=== PATIENT | female | born 1970 | race American Indian/Alaskan Native ===

== ENCOUNTER 2016-08-10 04:09 | Emergency (ER) | payer BC, OTHER ==
[2016-08-10 04:50] VITALS: BMI 38.2
[2016-08-10 04:51] VITALS: RESP 18
--- NOTE | 2016-08-10 04:54 | ED PDOC ---
Arrival/HPI - General Time Seen by Provider: 08/10/16 04:37 Historian: Patient - History of Present Illness Narrative History of Present Illness (Text): 08/10/16 04:54 Marlene Chao is a 45 year old female, whose past medical history includes thyroidectomy, who presents to the Emergency department complaining of mid- upper abdominal pain for the past few hours.Patient did eat earlier at [employer].Patient denies any fever, chills, chest pain, shortness of breath, nausea, vomiting, diarrhea, urinary symptoms, back pain, neck pain, headache, dizziness, or any other complaints. Time/Duration: 4-6 hours Symptom Onset: Gradual Symptom Course: Unchanged Activities at Onset: Light, Eating Context: Home Past Medical History - Provider Review Nursing Documentation Reviewed: Yes - Infectious Disease Hx of Infectious Diseases: None - Tetanus Immunization Tetanus Immunization: Unknown - Past Medical History Past Medical History: No Previous - Cardiac Hx Cardiac Disorders: Yes (pt. takes Lopressor,unknown why) - Pulmonary Hx Respiratory Disorders: Yes (past week,increasing dyspnea) - Neurological Hx Neurological Disorder: No - HEENT Hx HEENT Disorder: Yes (sinusitis 1 month ago) - Renal Hx Renal Disorder: No - Endocrine/Metabolic Hx Endocrine Disorders: Yes Hx Hyperthyroidism: Yes (lg. left sided goiter) - Hematological/Oncological Hx Blood Disorders: Yes Hx Anemia: Yes (chronic anemia) - Integumentary Hx Dermatological Disorder: No - Musculoskeletal/Rheumatological Hx Musculoskeletal Disorders: No - Gastrointestinal Hx Gastrointestinal Disorders: No - Genitourinary/Gynecological Other/Comment: miscarriage and D&C in 05/04, also small fibroids - Psychiatric Hx Anxiety: Yes (pt. takes Lorazepam each HS) Hx Substance Use: No - Surgical History Other/Comment: left fallopian tube removed in 1992, D&C in 05/04 - Anesthesia Hx Anesthesia: Yes Hx Anesthesia Reactions: No Hx Malignant Hyperthermia: No - Suicidal Assessment Feels Threatened In Home Enviroment: No Family/Social History - Physician Review Nursing Documentation Reviewed: Yes Family/Social History: No Known Family HX Smoking Status: Never Smoked Hx Alcohol Use: No Hx Substance Use: No Hx Substance Use Treatment: No Allergies/Home Meds Allergies/Adverse Reactions: Allergies No Known Allergies Allergy (Verified 08/10/16 04:49) Home Medications: Home Meds Medication Instructions Recorded Confirmed LORazepam [Ativan] 1 mg PO HS 07/15/14 08/10/16 Levothyroxine Sodium [Unithroid] 200 mcg PO DAILY 08/10/16 08/10/16 Review of Systems - Physician Review All systems were reviewed & negative as marked: Yes - Review of Systems Constitutional: Normal. absent: Fevers Eyes: Normal ENT: Normal Respiratory: Normal. absent: SOB, Cough Cardiovascular: Normal. absent: Chest Pain Gastrointestinal: Abdominal Pain. absent: Diarrhea, Nausea, Vomiting Genitourinary Female: Normal. absent: Dysuria, Frequency, Hematuria, Urine Output Changes Musculoskeletal: Normal. absent: Back Pain, Neck Pain Skin: Normal. absent: Rash Neurological: Normal. absent: Headache, Dizziness Endocrine: Normal Hemo/Lymphatic: Normal Psychiatric: Normal Physical Exam Vital Signs Reviewed: Yes Vital Signs Temp Pulse Resp BP Pulse Ox 08/10/16 04:50 97.8 F 76 18 138/85 100 Temperature: Afebrile Blood Pressure: Normal Pulse: Regular Respiratory Rate: Normal Appearance: Positive for: Well-Appearing, Non-Toxic, Comfortable Pain Distress: None Mental Status: Positive for: Alert and Oriented X 3 - Systems Exam Head: Present: Atraumatic, Normocephalic Pupils: Present: PERRL Extroacular Muscles: Present: EOMI Conjunctiva: Present: Normal Mouth: Present: Moist Mucous Membranes Neck: Present: Normal Range of Motion Respiratory/Chest: Present: Clear to Auscultation, Good Air Exchange. No: Respiratory Distress, Accessory Muscle Use Cardiovascular: Present: Regular Rate and Rhythm, Normal S1, S2. No: Murmurs Abdomen: Present: Tenderness (upper abdomen), Normal Bowel Sounds. No: Distention, Peritoneal Signs Back: Present: Normal Inspection Upper Extremity: Present: Normal Inspection. No: Cyanosis, Edema Lower Extremity: Present: Normal Inspection. No: Edema Neurological: Present: GCS=15, CN II-XII Intact, Speech Normal Skin: Present: Warm, Dry, Normal Color. No: Rashes Psychiatric: Present: Alert, Oriented x 3, Normal Insight, Normal Concentration Medical Decision Making ED Course and Treatment: 08/10/16 04:54 Impression: 45 year old female complaining of mid upper abdominal pain after eating yesterday. Plan: -- Labs, lipase -- IV fluids -- Pepcid -- Toradol -- Reassess and disposition Progress Notes: - Lab Interpretations Lab Results: 08/10/16 05:40 08/10/16 06:39 Lab Results 08/10/16 06:39: Sodium 140, Potassium 4.0, Chloride 105, Carbon Dioxide 23, Anion Gap 16, BUN 14, Creatinine 0.7, Est GFR ( Amer) > 60, Est GFR (Non- Af Amer) > 60, Random Glucose 102, Calcium 8.6, Total Bilirubin 0.8, AST 293 H, ALT 122 H, Alkaline Phosphatase 66, Total Protein 7.5, Albumin 3.7, Globulin 3.8 , Albumin/Globulin Ratio 1.0 L, Lipase 47 08/10/16 05:40: WBC 8.4, RBC 4.21, Hgb 9.2 L, Hct 29.8 L, MCV 70.8 L, MCH 21.9 L , MCHC 30.9 L, RDW 18.7 H, Plt Count 527 H, MPV 9.2 I have reviewed the lab results: Yes - RAD Interpretation Radiology Orders: 08/10/16 06:52 GALLBLADDER & PANCREAS [US] Stat - Medication Orders Current Medication Orders: Discontinued Medications Famotidine (Pepcid) 20 mg IVP STAT STA Stop: 08/10/16 04:57 Last Admin: 08/10/16 05:48 Dose: 20 MG IVP Administration Document 08/10/16 05:48 SB (Rec: 08/10/16 05:48 [id number] Charges for Administration # of IVP Administrations 1 Sodium Chloride (Sodium Chloride 0.9%) 1,000 mls @ 999 mls/hr IV .Q1H1M STA Stop: 08/10/16 05:56 Last Admin: 08/10/16 05:48 Dose: 999 MLS/HR eMAR Start Stop Document 08/10/16 05:48 SB (Rec: 08/10/16 05:48 [id number] Intravenous Solution Start Date 08/10/16 Start Time 05:48 End Date 08/10/16 Ketorolac Tromethamine (Toradol) 30 mg IVP ONCE ONE Stop: 08/10/16 04:57 Last Admin: 08/10/16 05:48 Dose: 30 MG IVP Administration Document 08/10/16 05:48 SB (Rec: 08/10/16 05:48 [id number] Charges for Administration # of IVP Administrations 1 - Transfer of Care Patient signed out to Dr:: Deidre Pending Labs:: labs/ GB sono/reeval./final disposition - Scribe Statement The provider has reviewed the documentation as recorded by the Manojibtriny Lorenzo Provider Attestation: All medical record entries made by the Scribe were at my direction and personally dictated by me. I have reviewed the chart and agree that the record accurately reflects my personal performance of the history, physical exam, medical decision making, and the department course for this patient. I have also personally directed, reviewed, and agree with the discharge instructions and disposition. Disposition/Present on Arrival - Present on Arrival Any Indicators Present on Arrival: No History of DVT/PE: No History of Uncontrolled Diabetes: No Urinary Catheter: No History Surgical Site Infection Followin - Disposition Have Diagnosis and Disposition been Completed?: No Diagnosis: Abdominal pain Disposition Time: 07:00 Patient Problems: Current Active Problems Problem Status Diagnosed Abdominal pain Acute Abnormal TSH Acute Dyspnea Acute Condition: STABLE
[2016-08-10] MEDS ORDERED: Sodium Chloride 0.9% 1,000 ML IV STA (04:56)
[2016-08-10 05:56] LABS: HEMATOCRIT 29.8 % (36.0-48.0); MEAN CELL VOLUME 70.8 fL (80.0-105.0); MEAN CORPUSCULAR HEMOGLOBIN 21.9 pg (25.0-35.0); MEAN CORPUSCULAR HGB CONC 30.9 g/dl (31.0-37.0); MEAN PLATELET VOLUME 9.2 fl (7.0-11.0); RED CELL DISTRIBUTION WIDTH 18.7 % (11.5-14.5); WHITE BLOOD COUNT 8.4 10^3/ul (4.5-11.0)
[2016-08-10 07:01] LABS: ALKALINE PHOSPHATASE 66 U/L (38-133); ALT/SGPT 122 U/L (7-56); AST/SGOT 293 U/L (15-39); BILIRUBIN,TOTAL 0.8 mg/dL (0.2-1.3); BLOOD UREA NITROGEN 14 mg/dL (7-21); CALCIUM 8.6 mg/dL (8.4-10.5); CARBON DIOXIDE 23 mmol/L (21-33); CHLORIDE 105 mmol/L (98-107); GFR AFRICAN-AMERICAN > 60; GLUCOSE,RANDOM 102 mg/dL (70-110); LIPASE 47 U/L (23-300); SODIUM 140 mmol/L (132-148); TOTAL PROTEIN 7.5 g/dL (5.8-8.3)
--- NOTE | 2016-08-10 07:24 | ED PDOC ---
Physical Exam Vital Signs Reviewed: Yes Vital Signs Temp Pulse Resp BP Pulse Ox 08/10/16 07:10 78 18 130/75 98 08/10/16 04:50 97.8 F 76 18 138/85 100 Temperature: Afebrile Blood Pressure: Normal Pulse: Regular Respiratory Rate: Normal Appearance: Positive for: Well-Appearing, Non-Toxic, Comfortable Pain Distress: None Mental Status: Positive for: Alert and Oriented X 3 Medical Decision Making ED Course and Treatment: 08/10/16 07:21 Patient is a 45 year old female presenting to ed complaining of upper abdominal discomfort. Patient was endorsed to me by pending ultrasound. 08/10/16 09:02 Exam Date : 08/10/2016 08:03:20 ( Addendum_Approved ) Study Comment : Sex / Age : F / 45Y Creator : Mary Hernández V. Dictator : Mary Hernández V. [employer] : School Attendance Secretary : Mary Hernández V. Approver2 : Report Date : 08/10/2016 08:32:28 My Comment : ADDENDUM: The reason for the addendum is to correct the placement of the decimal point in the measurement of the common bile duct. the measurements should be 7.5 mm . Apologies extended for any inconvenience(s) incurred. [ Addendum Report Added by Mary Hernández V. at 08/10/2016 08: 43:03 ] HISTORY: pain COMPARISON: None. TECHNIQUE: Sonographic evaluation of the right upper quadrant of the abdomen. FINDINGS: LIVER: Measures 19.4 cm in length. Normal echogenicity of the liver parenchyma. No mass. No intrahepatic bile duct dilatation. The liver appears minimally enlarged GALLBLADDER: Multiple gallstones without gallbladder wall thickening, or pericholecystic fluid is noted. No sonographic Fang sign reported. COMMON BILE DUCT: Measures 0.75 mm. No stones. No dilatation. PANCREAS: Unremarkable as visualized. No mass. No ductal dilatation. RIGHT KIDNEY: Measures 10.8 cm in length. Normal echogenicity. No calculus, mass, or hydronephrosis. AORTA: No aneurysmal dilatation. IVC: Unremarkable. OTHER FINDINGS: None . IMPRESSION: Multiple gallstones without ancillary acute cholecystitis sonographic findings. . No dilated ducts Patient instructed to f/u with General Surgery, educated on gallstones, instructed to return to the ER immediately for fever, worsening pain, or yellowing of skin or eyes. - Lab Interpretations Lab Results: 08/10/16 05:40 08/10/16 06:39 Lab Results 08/10/16 08:09: Urine Color Yellow, Urine Appearance Sl cloudy, Urine pH 6.5, Ur Specific Creede >= 1.030, Urine Protein Trace H, Urine Glucose (UA) Negative , Urine Ketones Negative, Urine Blood Moderate H, Urine Nitrate Negative, Urine Bilirubin Negative, Urine Urobilinogen 1.0 H, Ur Leukocyte Esterase Negative, Urine RBC 5 - 10, Urine WBC 2 - 5, Ur Epithelial Cells 6 - 8, Urine Bacteria Many, Urine HCG, Qual Negative 08/10/16 06:39: Sodium 140, Potassium 4.0, Chloride 105, Carbon Dioxide 23, Anion Gap 16, BUN 14, Creatinine 0.7, Est GFR ( Amer) > 60, Est GFR (Non- Af Amer) > 60, Random Glucose 102, Calcium 8.6, Total Bilirubin 0.8, AST 293 H, ALT 122 H, Alkaline Phosphatase 66, Total Protein 7.5, Albumin 3.7, Globulin 3.8 , Albumin/Globulin Ratio 1.0 L, Lipase 47 08/10/16 05:40: WBC 8.4, RBC 4.21, Hgb 9.2 L, Hct 29.8 L, MCV 70.8 L, MCH 21.9 L , MCHC 30.9 L, RDW 18.7 H, Plt Count 527 H, MPV 9.2 - RAD Interpretation Radiology Orders: 08/10/16 06:52 GALLBLADDER & PANCREAS [US] Stat - Medication Orders Current Medication Orders: Discontinued Medications Famotidine (Pepcid) 20 mg IVP STAT STA Stop: 08/10/16 04:57 Last Admin: 08/10/16 05:48 Dose: 20 MG IVP Administration Document 08/10/16 05:48 SB (Rec: 08/10/16 05:48 SB [id number]) Charges for Administration # of IVP Administrations 1 Sodium Chloride (Sodium Chloride 0.9%) 1,000 mls @ 999 mls/hr IV .Q1H1M STA Stop: 08/10/16 05:56 Last Admin: 08/10/16 05:48 Dose: 999 MLS/HR eMAR Start Stop Document 08/10/16 05:48 SB (Rec: 08/10/16 05:48 SB [id number]) Intravenous Solution Start Date 08/10/16 Start Time 05:48 End Date 08/10/16 Ketorolac Tromethamine (Toradol) 30 mg IVP ONCE ONE Stop: 08/10/16 04:57 Last Admin: 08/10/16 05:48 Dose: 30 MG IVP Administration Document 08/10/16 05:48 SB (Rec: 08/10/16 05:48 SB [id number]) Charges for Administration # of IVP Administrations 1 - Scribe Statement The provider has reviewed the documentation as recorded by the Kp Santos Provider Attestation: All medical record entries made by the Kp were at my direction and personally dictated by me. I have reviewed the chart and agree that the record accurately reflects my personal performance of the history, physical exam, medical decision making, and the department course for this patient. I have also personally directed, reviewed, and agree with the discharge instructions and disposition. Disposition/Present on Arrival - Present on Arrival Any Indicators Present on Arrival: No History of DVT/PE: No History of Uncontrolled Diabetes: No Urinary Catheter: No History of Decub. Ulcer: No History Surgical Site Infection Followin - Disposition Have Diagnosis and Disposition been Completed?: Yes Diagnosis: Abdominal pain, Gallstones Disposition: HOME/ ROUTINE Disposition Time: 08:58 Patient Plan: Discharge Patient Problems: Current Active Problems Problem Status Diagnosed Abdominal pain Acute Abnormal TSH Acute Dyspnea Acute Condition: STABLE Discharge Instructions (ExitCare): Biliary Colic (ED), Gallstones (ED) Prescriptions: Ibuprofen [Motrin] 600 mg PO Q6 #25 tab oxyCODONE/Acetaminophen [Percocet 5/325 mg Tab] 1 tab PO Q6 #10 tab Referrals: Juan F Stephenson MD [Staff Provider] - Follow up with primary Forms: WORK NOTE
[2016-08-10 08:17] LABS: PH,URINE 6.5 (4.7-8.0); URINE BILIRUBIN NEGATIVE (NEGATIVE); URINE BLOOD MODERATE (NEGATIVE); URINE GLUCOSE (UA) NEGATIVE (NEGATIVE); URINE KETONE NEGATIVE (NEGATIVE); URINE LEUKOCYTE ESTERASE NEGATIVE Leu/uL (NEGATIVE); URINE PROTEIN TRACE mg/dL (<30 mg/dL)
[2016-08-10 08:18] LABS: URINE APPEARANCE SL CLOUDY (CLEAR); URINE COLOR YELLOW (YELLOW)
[2016-08-10 08:26] LABS: URINE BACTERIA MANY (NEG)
--- NOTE | 2016-08-10 08:34 | US ---
HISTORY: pain COMPARISON: None. TECHNIQUE: Sonographic evaluation of the right upper quadrant of the abdomen. FINDINGS: LIVER: Measures 19.4 cm in length. Normal echogenicity of the liver parenchyma. No mass. No intrahepatic bile duct dilatation. The liver appears minimally enlarged GALLBLADDER: Multiple gallstones without gallbladder wall thickening, or pericholecystic fluid is noted. No sonographic Fang sign reported. COMMON BILE DUCT: Measures 0.75 mm. No stones. No dilatation. PANCREAS: Unremarkable as visualized. No mass. No ductal dilatation. RIGHT KIDNEY: Measures 10.8 cm in length. Normal echogenicity. No calculus, mass, or hydronephrosis. AORTA: No aneurysmal dilatation. IVC: Unremarkable. OTHER FINDINGS: None . IMPRESSION: Multiple gallstones without ancillary acute cholecystitis sonographic findings. . No dilated ducts
[2016-08-10 09:19] VITALS: BP 133/65; PULSE 73; TEMP 97.9; O2SAT 99
== END 2016-08-10 09:30 | disposition home or self-care (01) ==
LOC: ED 04:09
DX: K80.20 Calculus of gallbladder without cholecystitis without obstruction (principal); R10.9 Unspecified abdominal pain
CPT/HCPCS: 76705; 80053; 81001; 83690; 84703; 85027; 96374; 96375; 99284; J1885; J7040

== ENCOUNTER 2017-04-20 10:49 | Emergency (ER) | payer BC, OTHER ==
[2017-04-20 10:49] VITALS: BMI 38.2
[2017-04-20 11:00] VITALS: RESP 18; TEMP 98.1
--- NOTE | 2017-04-20 11:07 | ED PDOC ---
Arrival/HPI - General Chief Complaint: Dizziness/Lightheaded Time Seen by Provider: 04/20/17 11:03 Historian: Patient - History of Present Illness Narrative History of Present Illness (Text): 04/20/17 11:07 This 46 yo female with pmh BPPV, anemia, anxiety, s/o thyroidectomy on Levothyroxine, presents to this ED c/o intermittent dizziness x 10 days. Patient stated dizziness worsen when she looks up, or sudden movement. Dizziness described as room spinning. Patient noted dysuria x 7 days. Patient denies headache, fever, sob, cp, abdominal pain, urinary symptoms, skin rash, palpitation, leg swelling, calf pain, recent surgery, recent travel, hormonal replacement use, blood disorder, abnormal gait, or hemoptysis. PERC negative for PE Time/Duration: Other (10 days) Symptom Course: Intermittent Context: Home Past Medical History - Provider Review Nursing Documentation Reviewed: Yes - Infectious Disease Hx of Infectious Diseases: None - Tetanus Immunization Tetanus Immunization: Unknown - Past Medical History Past Medical History: No Previous - Cardiac Hx Cardiac Disorders: Yes - Pulmonary Hx Respiratory Disorders: Yes - Neurological Hx Neurological Disorder: No - HEENT Hx HEENT Disorder: Yes (sinusitis 1 month ago) - Renal Hx Renal Disorder: No - Endocrine/Metabolic Hx Endocrine Disorders: Yes Hx Hyperthyroidism: (lg. left sided goiter) Hx Hypothyroidism: Yes - Hematological/Oncological Hx Blood Disorders: Yes Hx Anemia: Yes (chronic anemia) - Integumentary Hx Dermatological Disorder: No - Musculoskeletal/Rheumatological Hx Musculoskeletal Disorders: No - Gastrointestinal Hx Gastrointestinal Disorders: No Other/Comment: Gall stones - Genitourinary/Gynecological Other/Comment: miscarriage and D&C in 05/04, also small fibroids - Psychiatric Hx Anxiety: Yes (pt. takes Lorazepam each HS) Hx Substance Use: No - Surgical History Hx Thyroidectomy: Yes Other/Comment: left fallopian tube removed in 1992, D&C in 05/04 - Anesthesia Hx Anesthesia: Yes Hx Anesthesia Reactions: No Hx Malignant Hyperthermia: No - Suicidal Assessment Feels Threatened In Home Enviroment: No Family/Social History - Physician Review Nursing Documentation Reviewed: Yes Family/Social History: Other (noncontributory) Smoking Status: Never Smoked Hx Alcohol Use: No Hx Substance Use: No Hx Substance Use Treatment: No Allergies/Home Meds Allergies/Adverse Reactions: Allergies No Known Allergies Allergy (Verified 04/20/17 11:00) Home Medications: Home Meds Medication Instructions Recorded Confirmed LORazepam [Ativan] 1 mg PO HS 07/15/14 04/20/17 Levothyroxine Sodium [Unithroid] 200 mcg PO DAILY 08/10/16 04/20/17 Review of Systems - Review of Systems Constitutional: Normal. absent: Fatigue, Weight Change, Fevers, Night Sweats Eyes: Normal. absent: Vision Changes ENT: Normal. absent: Sore Throat Respiratory: Normal. absent: SOB, Cough, Sputum Cardiovascular: Normal. absent: Chest Pain, Palpitations, Edema, Syncope Gastrointestinal: Normal. absent: Abdominal Pain, Nausea, Vomiting Genitourinary Female: Normal. absent: Hematuria Musculoskeletal: Normal. absent: Back Pain Skin: Normal. absent: Rash Neurological: Dizziness. absent: Headache, Focal Weakness, Gait Changes, Speech Changes, Facial Droop, Disequilibrium, Seizure Endocrine: Normal Hemo/Lymphatic: Normal Psychiatric: Anxiety. absent: Depression, Suicidal Ideation Physical Exam Vital Signs Temp Pulse Resp BP Pulse Ox 04/20/17 13:41 66 18 128/65 99 04/20/17 12:21 68 18 132/69 99 04/20/17 11:38 71 18 134/71 98 04/20/17 10:52 98.1 F 77 18 136/75 98 Temperature: Afebrile Blood Pressure: Normal Pulse: Regular Respiratory Rate: Normal Appearance: Positive for: Well-Appearing, Non-Toxic, Comfortable Pain Distress: None Mental Status: Positive for: Alert and Oriented X 3 - Systems Exam Head: Present: Atraumatic, Normocephalic Pupils: Present: PERRL Extroacular Muscles: Present: EOMI Conjunctiva: Present: Normal Mouth: Present: Moist Mucous Membranes Neck: Present: Normal Range of Motion Respiratory/Chest: Present: Clear to Auscultation, Good Air Exchange. No: Respiratory Distress, Accessory Muscle Use, Wheezes, Retracting, Rhonchi Cardiovascular: Present: Regular Rate and Rhythm, Normal S1, S2. No: Murmurs Abdomen: Present: Normal Bowel Sounds. No: Tenderness, Distention, Peritoneal Signs Back: Present: Normal Inspection. No: CVA Tenderness Upper Extremity: Present: Normal Inspection, Normal ROM, NORMAL PULSES, Neurovascularly Intact, Capillary Refill < 2s. No: Cyanosis, Edema Lower Extremity: Present: Normal Inspection, NORMAL PULSES, Normal ROM, Neurovascularly Intact, Capillary Refill < 2 s. No: Edema, CALF TENDERNESS, Tenderness, Swelling Neurological: Present: GCS=15, CN II-XII Intact, Speech Normal Skin: Present: Warm, Dry, Normal Color. No: Rashes Psychiatric: Present: Alert, Oriented x 3, Normal Insight, Normal Concentration , Normal Affect, Normal Mood. No: Anxious, Agitated, Depressed Mood, Suicidal Ideation, Homicidal Ideation, Delusional, Hallucinations Medical Decision Making ED Course and Treatment: 04/20/17 12:54 Patient refused pelvic exam. 04/20/17 13:32 Re-evaluation. Patient feels better. Discussed results and plan with patient who expresses understanding. All questions answered and there is agreement with the plan to discharge home with instructions. Patient stable for discharge. Return if symptoms persist or worsen. Patient was recommended to f/u urine culture and STD test result with pmd in 3- 5 days. Hg is similar to previous visits. Patient stated hx. of chronic anemia. Re-evaluation Time: 13:33 Reassessment Condition: Re-examined, Improved - Lab Interpretations Microbiology Results: Microbiology Results 04/20/17 13:26 Urine,Clean Catch Urine Culture - Preliminary Gram Negative Speedy Gram Positive Cocci Lab Results: 04/20/17 11:44 04/20/17 11:44 Lab Results 04/20/17 11:44: Urine HCG, Qual Negative 04/20/17 11:44: Sodium 140, Potassium 4.0, Chloride 106, Carbon Dioxide 26, Anion Gap 12, BUN 12, Creatinine 0.9, Est GFR ( Amer) > 60, Est GFR (Non- Af Amer) > 60, Random Glucose 101, Calcium 9.4, Total Bilirubin 0.6, AST 24, ALT 31, Alkaline Phosphatase 44, Lactate Dehydrogenase 433, Total Creatine Kinase 124, Troponin I < 0.01, Total Protein 7.8, Albumin 3.9, Globulin 3.9, Albumin/Globulin Ratio 1.0 L 04/20/17 11:44: Urine Color Yellow, Urine Appearance Clear, Urine pH 7.0, Ur Specific [place] 1.020, Urine Protein Trace H, Urine Glucose (UA) Negative, Urine Ketones Negative, Urine Blood Moderate H, Urine Nitrate Negative, Urine Bilirubin Negative, Urine Urobilinogen 0.2, Ur Leukocyte Esterase Moderate H, Urine RBC 15 - 20, Urine WBC 25 - 30, Ur Epithelial Cells 6 - 8, Amorphous Sediment Few, Urine Bacteria Many, Urine Other Uyeast 04/20/17 11:44: WBC 7.8, RBC 4.33, Hgb 8.9 L, Hct 30.0 L, MCV 69.3 L, MCH 20.6 L , MCHC 29.7 L, RDW 18.8 H, Plt Count 502 H, MPV 9.0, Gran % 56.1, Lymph % (Auto ) 32.3, Reagan % (Auto) 10.7 H, Eos % (Auto) 0.6 L, Baso % (Auto) 0.3, Gran # 4.35 , Lymph # 2.5, Reagan # 0.8 H, Eos # 0.1, Baso # 0.02 Interpretation: Abnormal lab values (anemia, pyuria, hematuria) - RAD Interpretation Narrative RAD Interpretations (Text): 04/20/17 13:30 PROCEDURE: CT HEAD WITHOUT CONTRAST. HISTORY: dizziness COMPARISON: None available. TECHNIQUE: Axial computed tomography images were obtained through the head/brain without intravenous contrast. Radiation dose: Total exam DLP = 726 mGy-cm. This CT exam was performed using one or more of the following dose reduction techniques: Automated exposure control, adjustment of the mA and/or kV according to patient size, and/or use of iterative reconstruction technique. FINDINGS: HEMORRHAGE: No intracranial hemorrhage. BRAIN: No mass effect or edema. No atrophy or chronic microvascular ischemic changes. VENTRICLES: Unremarkable. No hydrocephalus. CALVARIUM: Unremarkable. PARANASAL SINUSES: Unremarkable as visualized. No significant inflammatory changes. MASTOID AIR CELLS: Unremarkable as visualized. No inflammatory changes. OTHER FINDINGS: None. IMPRESSION: Normal CT of the Head. 04/20/17 13:33 Chest X-rays: NAD Radiology Orders: 04/20/17 11:23 CHEST ONE VIEW [RAD] Stat 04/20/17 11:26 HEAD W/O CONTRAST [CT] Stat - EKG Interpretation Interpreted by ED Physician: Yes (NSR @ 72bpm. Normal interval. No ST changes) Type: 12 lead EKG Comparison: No previous EKG avail. - Medication Orders Current Medication Orders: Discontinued Medications Azithromycin (Zithromax) 1,000 mg PO STAT STA PRN Reason: Protocol Stop: 04/20/17 12:12 Last Admin: 04/20/17 12:45 Dose: 1,000 mg Fluconazole (Diflucan) 200 mg PO STAT STA PRN Reason: Protocol Stop: 04/20/17 12:14 Last Admin: 04/20/17 12:45 Dose: 200 mg Sodium Chloride (Sodium Chloride 0.9%) 1,000 mls @ 999 mls/hr IV .Q1H1M STA Stop: 04/20/17 12:23 Last Admin: 04/20/17 11:45 Dose: 999 mls/hr eMAR Start Stop Document 04/20/17 11:45 [place] (Rec: 04/20/17 11:45 [place] [facility] [id number] Intravenous Solution Start Date 04/20/17 Start Time 11:45 Ceftriaxone Sodium (Rocephin 1 Gram Ivpb (D5w)) 1 gm in 100 mls @ 200 mls/hr IVPB STAT MEDARDO PRN Reason: Protocol Last Admin: 04/20/17 12:45 Dose: 200 mls/hr eMAR Start Stop Document 04/20/17 12:45 HI (Rec: 04/20/17 12:45 [place] [facility] [id number] Intravenous Solution Start Date 04/20/17 Start Time 12:45 Meclizine HCl (Antivert) 50 mg PO STAT STA Stop: 04/20/17 11:25 Last Admin: 04/20/17 11:45 Dose: 50 mg Disposition/Present on Arrival - Present on Arrival Any Indicators Present on Arrival: No History of DVT/PE: No History of Uncontrolled Diabetes: No Urinary Catheter: No History of Decub. Ulcer: No History Surgical Site Infection Following: None - Disposition Have Diagnosis and Disposition been Completed?: Yes Diagnosis: Urinary tract infection, Benign paroxysmal positional vertigo, Vulvovaginal candidiasis Disposition: HOME/ ROUTINE Disposition Time: 13:35 Patient Plan: Discharge Condition: IMPROVED Discharge Instructions (ExitCare): Urinary Tract Infection in Women (ED), Benign Paroxysmal Positional Vertigo (ED) Additional Instructions: Call private doctor for follow up visit in 1-2 days. Take medication as instructed. Return to emergency if symptoms worsen Prescriptions: Cephalexin [Keflex] 500 mg PO BID #14 capsule Meclizine [Meclizine*] 25 mg PO Q6 PRN #30 tab PRN Reason: Dizziness Referrals: Kay Sheridan MD [Primary Care Provider] - Follow up with primary Forms: [facility] ([place]ian), WORK NOTE
[2017-04-20] MEDS ORDERED: Sodium Chloride 0.9% 1,000 ML IV STA (11:23)
[2017-04-20 11:49] LABS: URINE BILIRUBIN NEGATIVE (NEGATIVE); URINE BLOOD MODERATE (NEGATIVE); URINE GLUCOSE (UA) NEGATIVE (NEGATIVE); URINE KETONE NEGATIVE (NEGATIVE); URINE LEUKOCYTE ESTERASE MODERATE Leu/uL (NEGATIVE); URINE PROTEIN TRACE mg/dL (<30 mg/dL); URINE UROBILINOGEN 0.2 E.U./dL (<1 E.U./dL)
[2017-04-20 11:51] LABS: BASO # 0.02 K/mm3 (0.0-2.0); BASO % 0.3 % (0.0-3.0); EOS # 0.1 (0.0-0.7); EOS % 0.6 % (1.5-5.0); GRAN # 4.35 (1.4-6.5); GRAN % 56.1 % (50.0-68.0); LYMPH # 2.5 (1.2-3.4); LYMPH % 32.3 % (22.0-35.0); MEAN CELL VOLUME 69.3 fl (80.0-105.0); MEAN CORPUSCULAR HEMOGLOBIN 20.6 pg (25.0-35.0); MEAN CORPUSCULAR HGB CONC 29.7 g/dl (31.0-37.0); MONO # 0.8 (0.1-0.6); MONO % 10.7 % (1.0-6.0); RED CELL DISTRIBUTION WIDTH 18.8 % (11.5-14.5); URINE APPEARANCE CLEAR (CLEAR); URINE COLOR YELLOW (YELLOW); WHITE BLOOD COUNT 7.8 10^3/ul (4.5-11.0)
[2017-04-20 12:00] LABS: ALKALINE PHOSPHATASE 44 U/L (38-126); ALT/SGPT 31 U/L (7-56); AST/SGOT 24 U/L (14-36); BILIRUBIN,TOTAL 0.6 mg/dL (0.2-1.3); BLOOD UREA NITROGEN 12 mg/dL (7-21); CALCIUM 9.4 mg/dL (8.4-10.5); CARBON DIOXIDE 26 mmol/L (21-33); CHLORIDE 106 mmol/L (98-107); GFR AFRICAN-AMERICAN > 60; GLUCOSE,RANDOM 101 mg/dL (70-110); SODIUM 140 mmol/L (132-148); TOTAL PROTEIN 7.8 g/dL (5.8-8.3)
[2017-04-20 12:02] LABS: URINE BACTERIA MANY (NEG); URINE RBC 15 - 20 /hpf (0-2); URINE WBC 25 - 30 /hpf (0-6)
[2017-04-20 12:04] LABS: URINE AMORPHOUS SEDIMENT FEW
[2017-04-20 12:10] LABS: TROPONIN I < 0.01 ng/mL
[2017-04-20] MEDS ORDERED: cefTRIAXone 1 gm 1 GM/100 ML BAG IVPB SCH (12:15)
[2017-04-20 12:21] VITALS: O2SAT 99
--- NOTE | 2017-04-20 12:21 | CT ---
PROCEDURE: CT HEAD WITHOUT CONTRAST. HISTORY: dizziness COMPARISON: None available. TECHNIQUE: Axial computed tomography images were obtained through the head/brain without intravenous contrast. Radiation dose: Total exam DLP = 726 mGy-cm. This CT exam was performed using one or more of the following dose reduction techniques: Automated exposure control, adjustment of the mA and/or kV according to patient size, and/or use of iterative reconstruction technique. FINDINGS: HEMORRHAGE: No intracranial hemorrhage. BRAIN: No mass effect or edema. No atrophy or chronic microvascular ischemic changes. VENTRICLES: Unremarkable. No hydrocephalus. CALVARIUM: Unremarkable. PARANASAL SINUSES: Unremarkable as visualized. No significant inflammatory changes. MASTOID AIR CELLS: Unremarkable as visualized. No inflammatory changes. OTHER FINDINGS: None. IMPRESSION: Normal CT of the Head.
--- NOTE | 2017-04-20 13:06 | RAD ---
PROCEDURE: CHEST RADIOGRAPH, 1 VIEW HISTORY: dizziness COMPARISON: 07/14/2014 FINDINGS: LUNGS: Clear. PLEURA: No pneumothorax or pleural fluid seen. CARDIOVASCULAR: Normal. OSSEOUS STRUCTURES: No significant abnormalities. VISUALIZED UPPER ABDOMEN: Normal. OTHER FINDINGS: None. IMPRESSION: No active disease.
[2017-04-20 13:42] VITALS: BP 128/65; PULSE 66
--- NOTE | 2017-04-21 17:45 | CARD ---
APPROVED REPORT EKG Measurement Heart [id number] <Conclusion> Normal sinus rhythm Low voltage QRS Borderline ECG
== END 2017-04-20 14:13 | disposition home or self-care (01) ==
LOC: ED 10:49
DX: H81.10 Benign paroxysmal vertigo, unspecified ear (principal); N39.0 Urinary tract infection, site not specified; B37.3 Candidiasis of vulva and vagina; D64.9 Anemia, unspecified
CPT/HCPCS: 70450; 71010; 80053; 81001; 82550; 83615; 84484; 84703; 85025; 87086; 87181; 87491; 87591; 93005; 96374; 99285; J0696; J7040

== ENCOUNTER 2017-11-23 10:54 | Emergency (ER) | payer BC ==
[2017-11-23 10:54] VITALS: BMI 38.2
[2017-11-23 12:06] VITALS: RESP 18
--- NOTE | 2017-11-23 12:22 | ED PDOC ---
Arrival/HPI - General Historian: Patient - History of Present Illness Time/Duration: Other (see hpi) Context: Home - General Chief Complaint: Female Genitourinary Time Seen by Provider: 11/23/17 12:22 - History of Present Illness Narrative History of Present Illness (Text): 11/23/17 12:22 This 47 yo female presents to this ED c/o dysuria, urgency and urinary frequency x 7 days. Denies fever, hematuria, vaginal discharge, vaginal bleeding, or flank pain. Patient denies STD exposure. (James Betancourt) Past Medical History - Provider Review Nursing Documentation Reviewed: Yes - Infectious Disease Hx of Infectious Diseases: None - Tetanus Immunization Tetanus Immunization: Unknown - Reproductive Menopause: No - Past Medical History Past Medical History: No Previous - Cardiac Hx Cardiac Disorders: Yes - Pulmonary Hx Respiratory Disorders: Yes - Neurological Hx Neurological Disorder: No - HEENT Hx HEENT Disorder: Yes (sinusitis 1 month ago) - Renal Hx Renal Disorder: No - Endocrine/Metabolic Hx Endocrine Disorders: Yes Hx Hyperthyroidism: (lg. left sided goiter) Hx Hypothyroidism: Yes - Hematological/Oncological Hx Blood Disorders: Yes Hx Anemia: Yes (chronic anemia) - Integumentary Hx Dermatological Disorder: No - Musculoskeletal/Rheumatological Hx Musculoskeletal Disorders: No - Gastrointestinal Hx Gastrointestinal Disorders: No Other/Comment: Gall stones - Genitourinary/Gynecological Other/Comment: miscarriage and D&C in 05/04, also small fibroids - Psychiatric Hx Anxiety: Yes (pt. takes Lorazepam each HS) Hx Substance Use: No - Surgical History Hx Thyroidectomy: Yes Other/Comment: left fallopian tube removed in 1992, D&C in 05/04 - Anesthesia Hx Anesthesia: Yes Hx Anesthesia Reactions: No Hx Malignant Hyperthermia: No - Suicidal Assessment Feels Threatened In Home Enviroment: No Family/Social History - Physician Review Nursing Documentation Reviewed: Yes Family/Social History: Other (noncontributory) Smoking Status: Never Smoked Hx Alcohol Use: No Hx Substance Use: No Hx Substance Use Treatment: No Allergies/Home Meds Allergies/Adverse Reactions: Allergies No Known Allergies Allergy (Verified 04/20/17 11:00) Home Medications: Home Meds Medication Instructions Recorded Confirmed LORazepam [Ativan] 1 mg PO HS 07/15/14 04/20/17 Levothyroxine Sodium [Unithroid] 200 mcg PO DAILY 08/10/16 04/20/17 Review of Systems - Review of Systems Constitutional: Normal. absent: Fatigue, Weight Change, Fevers Eyes: Normal ENT: Normal Respiratory: Normal. absent: SOB Cardiovascular: Normal. absent: Chest Pain Gastrointestinal: Normal Genitourinary Female: Dysuria, Frequency. absent: Hematuria, Urine Output Changes, Vaginal Bleeding, Vaginal Discharge Musculoskeletal: Normal Skin: Normal. absent: Rash Neurological: Normal. absent: Headache, Dizziness Endocrine: Normal Hemo/Lymphatic: Normal Psychiatric: Normal Physical Exam Temperature: Afebrile Blood Pressure: Normal Pulse: Regular Respiratory Rate: Normal Appearance: Positive for: Well-Appearing, Non-Toxic, Comfortable Pain Distress: None Mental Status: Positive for: Alert and Oriented X 3 - Systems Exam Head: Present: Atraumatic, Normocephalic Pupils: Present: PERRL Extroacular Muscles: Present: EOMI Conjunctiva: Present: Normal Mouth: Present: Moist Mucous Membranes Neck: Present: Normal Range of Motion Respiratory/Chest: Present: Clear to Auscultation, Good Air Exchange. No: Respiratory Distress, Accessory Muscle Use Cardiovascular: Present: Regular Rate and Rhythm, Normal S1, S2. No: Murmurs Abdomen: No: Tenderness, Distention, Peritoneal Signs Back: Present: Normal Inspection. No: CVA Tenderness Upper Extremity: Present: Normal Inspection, Normal ROM, NORMAL PULSES, Neurovascularly Intact, Capillary Refill < 2s. No: Cyanosis, Edema Lower Extremity: Present: Normal Inspection, NORMAL PULSES, Normal ROM. No: Edema, CALF TENDERNESS Neurological: Present: GCS=15, CN II-XII Intact, Speech Normal, Motor Func Grossly Intact, Normal Sensory Function, Normal Cerebellar Funct, Gait Normal, Memory Normal Skin: Present: Warm, Dry, Normal Color. No: Rashes Psychiatric: Present: Alert, Oriented x 3, Normal Insight, Normal Concentration Vital Signs Temp Pulse Resp BP Pulse Ox 11/23/17 14:12 98.5 F 72 18 132/72 99 11/23/17 12:00 98.6 F 88 18 154/99 H 98 Medical Decision Making Re-evaluation Time: 13:55 Reassessment Condition: Re-examined, Improved - Lab Interpretations I have reviewed the lab results: Yes Interpretation: Abnormal lab values ED Course and Treatment: 11/23/17 13:49 Patient came to this ED with urinary symptoms. Patient absolutely denies STD exposure. UA was negative for Leuk., but because of symptoms I will recommended ABX. (James Betancourt) 11/25/17 14:37 Urine culture show beta hemolytic strep group, sensitive to the penicillin, called the patient and eRX to [facility] at [address] [place] [address] on the [place], discussed about the result and advised to stop keflex and start amoxicillin ( penicillin class), pt. verbally expressed understanding. (Ernie Burr) - Lab Interpretations Microbiology Results: Microbiology Results 11/23/17 11:40 Urine Urine Culture - Final Beta Hemolytic Strep Group B Lab Results: Lab Results 11/23/17 11:40: Urine HCG, Qual Negative 11/23/17 11:40: Urine Color Yellow, Urine Appearance Turbid, Urine pH 6.0, Ur Specific [place] 1.025, Urine Protein Trace H, Urine Glucose (UA) Negative, Urine Ketones Trace H, Urine Blood Moderate H, Urine Nitrate Negative, Urine Bilirubin Negative, Urine Urobilinogen 0.2, Ur Leukocyte Esterase Negative, Urine RBC 1 - 3, Urine WBC 0 - 2, Ur Epithelial Cells 6 - 8, Urine Bacteria Few - Medication Orders Current Medication Orders: Discontinued Medications Cephalexin Monohydrate (Keflex) 500 mg PO STAT STA PRN Reason: Protocol Stop: 11/23/17 13:49 Last Admin: 11/23/17 14:11 Dose: 500 mg Phenazopyridine HCl (Pyridium) 200 mg PO STAT STA Stop: 11/23/17 13:50 Last Admin: 11/23/17 14:10 Dose: 200 mg Disposition/Present on Arrival - Present on Arrival Any Indicators Present on Arrival: No History of DVT/PE: No History of Uncontrolled Diabetes: No Urinary Catheter: No History of Decub. Ulcer: No History Surgical Site Infection Following: None - Disposition Have Diagnosis and Disposition been Completed?: Yes Disposition Time: 13:56 Patient Plan: Discharge - Disposition Diagnosis: Acute cystitis Disposition: HOME/ ROUTINE Condition: GOOD Discharge Instructions (ExitCare): Acute Cystitis (DC) Additional Instructions: Call private doctor for follow up visit in 1-2 days. take medication as instructed. Return to emergency if symptoms worsen. Review urine culture in 2- 3 days with your doctor Prescriptions: Amoxicillin 500 mg PO TID #30 tab Phenazopyridine HCl [Pyridium] 200 mg PO TID #6 tablet Referrals: Kay Sheridan MD [Primary Care Provider] - Follow up with primary Forms: [employer] (E[place]ian), WORK NOTE
[2017-11-23 12:51] LABS: URINE APPEARANCE TURBID (CLEAR); URINE BILIRUBIN NEGATIVE (NEGATIVE); URINE BLOOD MODERATE (NEGATIVE); URINE COLOR YELLOW (YELLOW); URINE GLUCOSE (UA) NEGATIVE (NEGATIVE); URINE LEUKOCYTE ESTERASE NEGATIVE Leu/uL (NEGATIVE); URINE PROTEIN TRACE mg/dL (<30 mg/dL); URINE UROBILINOGEN 0.2 E.U./dL (<1 E.U./dL)
[2017-11-23 12:55] LABS: URINE BACTERIA FEW (NEG); URINE WBC 0 - 2 /hpf (0-6)
[2017-11-23 14:49] VITALS: BP 132/72; PULSE 72; TEMP 98.5; O2SAT 99
== END 2017-11-23 14:12 | disposition home or self-care (01) ==
LOC: ED 10:54
DX: N30.00 Acute cystitis without hematuria (principal)

== ENCOUNTER 2018-03-04 22:52 | Observation (INO) | payer BC ==
[2018-03-04 23:03] VITALS: BMI 53.6
[2018-03-04] MEDS ORDERED: Morphine 2 mg/ml ISec IVP STA (23:27)
--- NOTE | 2018-03-04 23:54 | ED PDOC ---
Arrival/HPI - General Historian: Patient - History of Present Illness Narrative History of Present Illness (Text): 03/04/18 23:47 Patient is a 47 year old female with a past medical history including gallstones and hypothyroidism (s/p thyroidectomy for goiter) presenting to the emergency room for RUQ pain. The pain started last night as patient was getting ready for bed. The pain was described as sharp and radiating to her back on the right side. She became very nauseous but did not vomit. She went to bed and woke up this morning feeling much better but was still nauseous. The pain returned this afternoon around 3pm for which she took aleve. The aleve helped but when her picked her up from work at 1030p the pain became very intense 8/10 and she felt worsening nausea. She has not vomited. When the pain intensifies, it takes her breath away. The pain is worse with movement and deep inspiration. Patient does not know what food she has eaten or if the pain is exacerbated by food because she has been nauseous all day and has not eaten. The pain is very similar to 1 year ago when she was diagnosed with gallstone. She followed up with a surgeon but took medication to dissolve gallstone instead of surgery. Patient also reports increased urinary frequency. Denies any dysuria, vaginal discharge or bleeding. Denies fevers, chills, diarrhea, constipation, chest pain, numbness or tingling. LMP: 02/14/18 Time/Duration: 24 hours Symptom Onset: Sudden Symptom Course: Intermittent Quality: Stabbing, Cramping <Efren Paul - Last Filed: 03/05/18 02:58> <El Hairston - Last Filed: 03/05/18 04:13> - General Chief Complaint: Abdominal Pain Time Seen by Provider: 03/04/18 23:08 Past Medical History - Provider Review Nursing Documentation Reviewed: Yes - Infectious Disease Hx of Infectious Diseases: None - Tetanus Immunization Tetanus Immunization: Unknown - Past Medical History Past Medical History: No Previous - Cardiac Hx Cardiac Disorders: Yes - Pulmonary Hx Respiratory Disorders: Yes - Neurological Hx Neurological Disorder: No - HEENT Hx HEENT Disorder: Yes (sinusitis) - Renal Hx Renal Disorder: No - Endocrine/Metabolic Hx Endocrine Disorders: Yes Hx Hyperthyroidism: (lg. left sided goiter) Hx Hypothyroidism: Yes - Hematological/Oncological Hx Blood Disorders: Yes Hx Anemia: Yes (chronic anemia) - Integumentary Hx Dermatological Disorder: No - Musculoskeletal/Rheumatological Hx Musculoskeletal Disorders: No - Gastrointestinal Hx Gastrointestinal Disorders: No Other/Comment: Gall stones - Genitourinary/Gynecological Other/Comment: miscarriage and D&C in 05/04, also small fibroids - Psychiatric Hx Anxiety: Yes (pt. takes Lorazepam each HS) Hx Substance Use: No - Surgical History Hx Thyroidectomy: Yes Other/Comment: left fallopian tube removed in 1992, D&C in 05/04 - Anesthesia Hx Anesthesia: Yes Hx Anesthesia Reactions: No Hx Malignant Hyperthermia: No - Suicidal Assessment Feels Threatened In Home Enviroment: No <Efren Paul - Last Filed: 03/05/18 02:58> Family/Social History - Physician Review Nursing Documentation Reviewed: Yes Family/Social History: No Known Family HX Smoking Status: Never Smoked Hx Alcohol Use: No Hx Substance Use: No Hx Substance Use Treatment: No <Efren Paul - Last Filed: 03/05/18 02:58> Allergies/Home Meds <Efren Paul - Last Filed: 03/05/18 02:58> <El Hairston - Last Filed: 03/05/18 04:13> Allergies/Adverse Reactions: Allergies No Known Allergies Allergy (Verified 03/04/18 23:21) Home Medications: Home Meds Medication Instructions Recorded Confirmed Levothyroxine Sodium [Unithroid] 200 mcg PO DAILY 08/10/16 03/04/18 Review of Systems - Physician Review All systems were reviewed & negative as marked: Yes - Review of Systems Constitutional: Fatigue. absent: Fevers Eyes: Normal. absent: Vision Changes ENT: Normal. absent: Sore Throat, Rhinorrhea Respiratory: Normal. absent: SOB, Wheezing Cardiovascular: Normal. absent: Chest Pain, Palpitations, Edema, ALLEN, Syncope Gastrointestinal: Abdominal Pain (RUQ), Nausea. absent: Constipation, Diarrhea, Vomiting Genitourinary Female: Frequency. absent: Dysuria, Hematuria Musculoskeletal: Normal Skin: Normal Neurological: Normal. absent: Headache, Dizziness Endocrine: Normal. absent: Diaphoresis Hemo/Lymphatic: Normal. absent: Adenopathy Psychiatric: Normal. absent: Anxiety <Efren Paul - Last Filed: 03/05/18 02:58> Physical Exam Vital Signs Reviewed: Yes Vital Signs Temp Pulse Resp BP Pulse Ox 03/04/18 23:02 98.6 F 81 18 137/75 100 Temperature: Afebrile Blood Pressure: Normal Pulse: Regular Respiratory Rate: Normal Appearance: Positive for: Non-Toxic, Uncomfortable, Other (Morbidly obese) Pain Distress: Moderate Mental Status: Positive for: Alert and Oriented X 3 - Systems Exam Head: Present: Atraumatic, Normocephalic Extroacular Muscles: Present: EOMI Conjunctiva: Present: Normal Mouth: Present: Moist Mucous Membranes Nose (External): Present: Atraumatic Nose (Internal): Present: No Active Bleeding, Moist Neck: Present: Normal Range of Motion. No: JVD Respiratory/Chest: Present: Clear to Auscultation, Good Air Exchange. No: Respiratory Distress, Accessory Muscle Use, Wheezes, Rales, Rhonchi, Tachypneic, Tender to Palpation Cardiovascular: Present: Regular Rate and Rhythm, Normal S1, S2. No: Murmurs Abdomen: Present: Tenderness (RUQ ), Guarding (RUQ). No: Distention, Peritoneal Signs, Rebound, McBurney's Point Tender, Rovsing's Sign Present Back: Present: Normal Inspection. No: CVA Tenderness, Midline Tenderness, Par aspinal Tenderness Upper Extremity: Present: Normal Inspection, NORMAL PULSES. No: Cyanosis, Edema, Erythema Lower Extremity: Present: Normal Inspection, NORMAL PULSES. No: Edema Neurological: Present: GCS=15, Speech Normal, Motor Func Grossly Intact Skin: Present: Warm, Dry, Normal Color. No: Rashes Lymphatic: No: Cervical Adenopathy Psychiatric: Present: Alert, Oriented x 3, Normal Insight, Normal Concentration <Efren Paul - Last Filed: 03/05/18 02:58> Vital Signs Temp Pulse Resp BP Pulse Ox 03/04/18 23:02 98.6 F 81 18 137/75 100 <El Hairston - Last Filed: 03/05/18 04:13> Medical Decision Making ED Course and Treatment: 03/04/18 23:57 Patient is a 47 year old female with a known past medical history of gallstones presenting with a 24 hour history of RUQ pain and nausea. Physical Exam positive for RUQ tenderness/guarding. + Fang's sign Patient appears very uncomfortable. Suspected cholecystitis Morphine and zofran given Labs, EKG, CXR and Abd/Pel CT w/o 03/05/18 02:11 Patient is stating she is still in pain, but not nauseous. Discussed results of CT and labs with patient. Abd/pel CT shows cholelithiasis without cholecystitis - appears to be some inflammation on the left side of the abdomen, but it was not mentioned on CT report. Patient is still experiencing abdominal pain but no nausea. Dr. Heath called and discussed case. He has accepted patient on to his service for telemetry observation. Dr. Heath has requested consult for Dr. Hazel (GI). Order placed. Re-evaluation Time: 02:10 - RAD Interpretation Radiology Orders: 03/04/18 23:22 ABDOMEN & PELVIS [ABD & PELVIS W/O PO OR IV CONT] [CT] Stat CHEST PORTABLE [RAD] Stat - EKG Interpretation EKG Interpretation (Text): 03/05/18 00:11 EKG - NSR 74 bpm, normal axis, no acute ST elevations or depressions. - similar to ekg on 04/20/17 Interpreted by ED Physician: Yes Type: 12 lead EKG Comparison: Similar to previous EKG - Medication Orders Current Medication Orders: Discontinued Medications Morphine Sulfate (Morphine) 2 mg IVP STAT STA Stop: 03/04/18 23:28 Ondansetron HCl (Zofran Inj) 4 mg IVP STAT STA Stop: 03/04/18 23:28 <Efren Paul - Last Filed: 03/05/18 02:58> ED Course and Treatment: Impression: Pt seen and evaluated with medical office specialist. Aware and agree with HPI, clinical findings, plan, and management. Pt, whose past medical history includes cholelithiasis, hypothyrodism, and thyroidectomy for Goiter removal, presented for sharp RUQ pain radiating to her right back and nausea since yesterday evening. Plan: -- CT Abdomen and Pelvis -- EKG -- Chest X-ray -- Labs -- Zofran -- Morphine -- Reassess and disposition 03/05/18 02:00 CT Abdomen and Pelvis shows: The liver is of uniform attenuation without mass or defect. There is no intra or extrahepatic biliary ductal dilatation. The spleen is normal. The gallbladder contains multiple gallstones. The pancreas is of normal contour and attenuation characteristics. There is no evidence of adrenal mass. Bilateral simple renal cysts with the largest measuring 3.8 cm. Both kidneys demonstrate prompt and equal nephrograms. The kidneys are normal in size, shape and configuration. There is no evidence of renal or ureteral mass. No renal or ureteral calculi are identified. There is no hydroureter or hydronephrosis. No evidence for appendicitis. There is no bowel wall thickening. No evidence for small or large bowel obstruction. There is no evidence of abdominal ascites or lymphadenopathy. There is no evidence of intrinsic or extrinsic bladder mass. There is small amount of free pelvic fluid. Enlarged uterus with multiple fibroids the largest measuring 7.2 cm. Images of the lung bases show no evidence of pleural or parenchymal mass. There are no pleural effusions. The bony structures are free of lytic or blastic lesions. IMPRESSION: Cholelithiasis without acute cholecystitis. Enlarged uterus with multiple fibroids. Small amount of free pelvic fluid. Electronically signed on Mar 05, 2018 1:57:57 AM EDT by: Matt Hook M.D., Certified by ABR, MSK, Neuroradiology - Lab Interpretations Lab Results: 03/05/18 00:05 Lab Results 03/05/18 00:05: WBC 9.8 D, RBC 4.63, Hgb 8.9 L, Hct 29.5 L, MCV 63.7 L D, MCH 19.2 L, MCHC 30.2 L, RDW 20.2 H, Plt Count 553 H, MPV 8.5, Gran % 63.0, Lymph % (Auto) 25.9, Garrett % (Auto) 10.2 H, Eos % (Auto) 0.4 L, Baso % (Auto) 0.5, Gran # 6.14, Lymph # (Auto) 2.5, Garrett # (Auto) 1.0 H, Eos # (Auto) 0.0, Baso # (Auto) 0.05 - RAD Interpretation Radiology Orders: 03/04/18 23:22 ABDOMEN & PELVIS [ABD & PELVIS W/O PO OR IV CONT] [CT] Stat CHEST PORTABLE [RAD] Stat Corrosion Control Specialist: Radiologist - Medication Orders Current Medication Orders: Discontinued Medications Morphine Sulfate (Morphine) 2 mg IVP STAT STA Stop: 03/04/18 23:28 Last Admin: 03/05/18 00:08 Dose: 2 mg MAR Pain Assessment Document 03/05/18 00:08 (Rec: [facility]/05/18 00:[id number] Pain Reassessment Is this a pain reassessment? Yes Location Left, Right or Bilateral Right Upper or Lower Upper Pain Location Body Site Abdomen Description Description Pressure IVP Administration Document 03/05/18 00:08 (Rec: 03/05/18 00:[id number] Charges for Administration # of IVP Administrations 1 Ondansetron HCl (Zofran Inj) 4 mg IVP STAT STA Stop: 03/04/18 23:28 Last Admin: 03/05/18 00:13 Dose: 4 mg IVP Administration Document 03/05/18 00:13 (Rec: 03/05/18 00:[id number] Charges for Administration # of IVP Administrations 1 <El Hairston - Last Filed: 03/05/18 04:13> - PA / PULLER OVER / Resident Statement SARAI has reviewed & agrees with the documentation as recorded. SARAI has examined the patient and agrees with the treatment plan. <El Hairston - Last Filed: 03/05/18 04:13> Disposition/Present on Arrival - Present on Arrival Any Indicators Present on Arrival: No History of DVT/PE: No History of Uncontrolled Diabetes: No Urinary Catheter: No History of Decub. Ulcer: No History Surgical Site Infection Following: None - Disposition Have Diagnosis and Disposition been Completed?: Yes Disposition Time: 02:11 Patient Plan: Observation, Telemetry <Efren Paul - Last Filed: 03/05/18 02:58> <El Hairston - Last Filed: 03/05/18 04:13> - Disposition Diagnosis: Abdominal pain Disposition: HOSPITALIZED Patient Problems: Current Active Problems Problem Status Onset Abdominal pain Acute Condition: GUARDED
[2018-03-05 00:19] LABS: BASO # 0.05 K/mm3 (0.0-2.0); BASO % 0.5 % (0.0-3.0); EOS % 0.4 % (1.5-5.0); GRAN # 6.14 (1.4-6.5); HEMOGLOBIN 8.9 g/dL (12.0-16.0); LYMPH # 2.5 (1.2-3.4); LYMPH % 25.9 % (22.0-35.0); MEAN CELL VOLUME 63.7 fl (80.0-105.0); MEAN CORPUSCULAR HEMOGLOBIN 19.2 pg (25.0-35.0); MEAN CORPUSCULAR HGB CONC 30.2 g/dl (31.0-37.0); MEAN PLATELET VOLUME 8.5 fl (7.0-11.0); MONO % 10.2 % (1.0-6.0); RBC 4.63 10^6/uL (3.5-6.1); RED CELL DISTRIBUTION WIDTH 20.2 % (11.5-14.5); WHITE BLOOD COUNT 9.8 10^3/ul (4.5-11.0)
[2018-03-05 00:37] LABS: ALBUMIN 4.3 g/dL (3.0-4.8); BLOOD UREA NITROGEN 14 mg/dL (7-21); CALCIUM 9.8 mg/dL (8.4-10.5); GFR NON-AFRICAN AMERICAN > 60
[2018-03-05 00:39] LABS: INR 1.19; PARTIAL THROMBOPLASTIN TIME 28.5 Seconds (25.1-36.5); PROTHROMBIN TIME 13.6 SECONDS (9.4-12.5)
[2018-03-05 01:26] LABS: ALT/SGPT 15 U/L (7-56); AST/SGOT 25 U/L (14-36)
[2018-03-05 02:18] LABS: URINE BILIRUBIN NEGATIVE (NEGATIVE); URINE BLOOD SMALL (NEGATIVE); URINE GLUCOSE (UA) NEGATIVE (NEGATIVE); URINE LEUKOCYTE ESTERASE NEGATIVE Leu/uL (NEGATIVE); URINE PROTEIN TRACE mg/dL (<30 mg/dL); URINE UROBILINOGEN 0.2 E.U./dL (<1 E.U./dL)
[2018-03-05] MEDS ORDERED: Sodium Chloride 0.9% 1,000 ML IV STA (02:19)
[2018-03-05 02:22] LABS: URINE APPEARANCE CLEAR (CLEAR); URINE COLOR YELLOW (YELLOW)
[2018-03-05 02:34] LABS: URINE WBC 0 - 2 /hpf (0-6)
[2018-03-05 02:35] LABS: URINE BACTERIA FEW (NEG)
[2018-03-05] MEDS ORDERED: Morphine 2 mg/ml ISec IVP PRN (05:26)
[2018-03-05] MEDS ORDERED: Sodium Chloride 0.45% 1,000 ML IV SCH (05:30)
--- NOTE | 2018-03-05 05:44 | CP.PCM.CON ---
History of Present Illness - History of Present Illness History of Present Illness: Consult note for Dr. Stephenson consulted for Cholelithiasis HPI: patient is a 47 yr old female with PMH Cholelithiasis and hypothyroidism who presents to [facility] with 1 day of nausea associated with sharp intermittent RUQ abdominal pain that radiates to her back. Her last meal was a taco yesterday 5- 6 hours after eating the pain began. She additionally endorses SOB with exertion such as walking up a flight of stairs and recent feelings of fatigue. She denies OLMSTEAD, CP, vomiting, f/c, dysuria and changes in stool. PMH: gallstones, hypothyroid PSH: tubal ligation after exlap for ectopic , goiter removal, D&C 2013 ALL: nkda Social: denies Review of Systems - Review of Systems All systems: reviewed and no additional remarkable complaints except (as per HPI ) Past Patient History - Infectious Disease Hx of Infectious Diseases: None - Tetanus Immunizations Tetanus Immunization: Unknown - Past Medical History & Family History Past Medical History?: Yes - Past Social History Smoking Status: Never Smoked - CARDIAC Hx Cardiac Disorders: No - PULMONARY Hx Respiratory Disorders: No - NEUROLOGICAL Hx Neurological Disorder: No - HEENT Hx HEENT Problems: Yes (sinusitis) - RENAL Hx Chronic Kidney Disease: No - ENDOCRINE/METABOLIC Hx Endocrine Disorders: Yes Hx Hypothyroidism: Yes - HEMATOLOGICAL/ONCOLOGICAL Hx Blood Disorders: Yes Hx Anemia: Yes (chronic anemia) - INTEGUMENTARY Hx Dermatological Problems: No - MUSCULOSKELETAL/RHEUMATOLOGICAL Hx Musculoskeletal Disorders: No Hx Falls: No - GASTROINTESTINAL Hx Gastrointestinal Disorders: Yes Other/Comment: Gall stones - GENITOURINARY/GYNECOLOGICAL Hx Genitourinary Disorders: Yes Other/Comment: miscarriage and D&C in 05/04, also small fibroids - PSYCHIATRIC Hx Psychophysiologic Disorder: Yes Hx Anxiety: Yes Hx Substance Use: No - SURGICAL HISTORY Hx Surgeries: Yes Other/Comment: thyroidectomy. left fallopian tube removed in 1992. D&C in 05/04 - ANESTHESIA Hx Anesthesia: Yes Hx Anesthesia Reactions: No Hx Malignant Hyperthermia: No Meds Allergies/Adverse Reactions: Allergies Allergy/AdvReac Type Severity Reaction Status Date / Time No Known Allergies Allergy Verified 03/04/18 23:21 - Medications Medications: Current Medications Acetaminophen (Tylenol 325mg Tab) 650 mg PO Q4H PRN PRN Reason: Pain, Mild (1-3) Sodium Chloride (Sodium Chloride 0.9%) 1,000 mls @ 100 mls/hr IV .Q10H STA Stop: 03/05/18 12:18 Last Admin: 03/05/18 02:25 Dose: 100 mls/hr Sodium Chloride (Sodium Chloride 0.45%) 1,000 mls @ 80 mls/hr IV .[id number] MEDARDO Levothyroxine Sodium (Synthroid) 200 mcg PO ACB MEDARDO Morphine Sulfate (Morphine) 1 mg IVP Q3H PRN PRN Reason: Pain, moderate (4-7) Ondansetron HCl (Zofran Inj) 4 mg IVP Q6H PRN PRN Reason: Nausea/Vomiting Physical Exam - Constitutional Appears: Well, Non-toxic, No Acute Distress - Head Exam Head Exam: ATRAUMATIC - Eye Exam Eye Exam: EOMI Pupil Exam: PERRL - ENT Exam ENT Exam: Mucous Membranes Moist - Respiratory Exam Respiratory Exam: NORMAL BREATHING PATTERN - Cardiovascular Exam Cardiovascular Exam: REGULAR RHYTHM - GI/Abdominal Exam GI & Abdominal Exam: Soft. absent: Distended, Guarding, Rebound, Rigid, Tenderness - Extremities Exam Extremities exam: Positive for: pedal pulses present. Negative for: calf tenderness, pedal edema, tenderness - Back Exam Back exam: absent: CVA tenderness (L), CVA tenderness (R) - Neurological Exam Neurological exam: Alert, Oriented x3 - Psychiatric Exam Psychiatric exam: Normal Affect, Normal Mood - Skin Skin Exam: Dry, Intact, Normal Color, Warm Results - Vital Signs Recent Vital Signs: Last Vital Signs Temp 98 F 03/05/18 04:22 Pulse 62 03/05/18 04:22 Resp 18 03/05/18 05:01 BP 114/73 03/05/18 04:22 Pulse Ox 100 03/05/18 04:22 - Labs Result Diagrams: 03/05/18 00:05 03/05/18 00:05 Labs: Laboratory Results - last 24 hr 03/05/18 03/05/18 03/05/18 00:05 00:05 00:05 WBC 9.8 D RBC 4.63 Hgb 8.9 L Hct 29.5 L MCV 63.7 L D MCH 19.2 L MCHC 30.2 L RDW 20.2 H Plt Count 553 H MPV 8.5 Gran % 63.0 Lymph % (Auto) 25.9 Arroyo % (Auto) 10.2 H Eos % (Auto) 0.4 L Baso % (Auto) 0.5 Gran # 6.14 Lymph # (Auto) 2.5 Arroyo # (Auto) 1.0 H Eos # (Auto) 0.0 Baso # (Auto) 0.05 PT 13.6 H INR 1.19 APTT 28.5 Sodium 138 Potassium 4.4 Chloride 105 Carbon Dioxide 22 Anion Gap 15 BUN 14 Creatinine 0.7 Est GFR ( Amer) > 60 Est GFR (Non-Af Amer) > 60 Random Glucose 99 Calcium 9.8 Phosphorus 4.3 Magnesium 1.9 Total Bilirubin 0.6 AST 25 ALT 15 Alkaline Phosphatase 46 Total Protein 8.6 H Albumin 4.3 Globulin 4.3 Albumin/Globulin Ratio 1.0 L Lipase Urine Color Urine Appearance Urine pH Ur Specific [place] Urine Protein Urine Glucose (UA) Urine Ketones Urine Blood Urine Nitrate Urine Bilirubin Urine Urobilinogen Ur Leukocyte Esterase Urine RBC Urine WBC Ur Epithelial Cells Urine Bacteria 03/05/18 03/05/18 00:05 01:59 WBC RBC Hgb Hct MCV MCH MCHC RDW Plt Count MPV Gran % Lymph % (Auto) Arroyo % (Auto) Eos % (Auto) Baso % (Auto) Gran # Lymph # (Auto) Arroyo # (Auto) Eos # (Auto) Baso # (Auto) PT INR APTT Sodium Potassium Chloride Carbon Dioxide Anion Gap BUN Creatinine Est GFR ( Amer) Est GFR (Non-Af Amer) Random Glucose Calcium Phosphorus Magnesium Total Bilirubin AST ALT Alkaline Phosphatase Total Protein Albumin Globulin Albumin/Globulin Ratio Lipase 22 L Urine Color Yellow Urine Appearance Clear Urine pH 6.0 Ur Specific [place] 1.025 Urine Protein Trace H Urine Glucose (UA) Negative Urine Ketones Trace H Urine Blood Small H Urine Nitrate Negative Urine Bilirubin Negative Urine Urobilinogen 0.2 Ur Leukocyte Esterase Negative Urine RBC 1 - 3 Urine WBC 0 - 2 Ur Epithelial Cells 1 - 3 Urine Bacteria Few Assessment & Plan - Assessment and Plan (Free Text) Assessment: 47 F with history of Gallstones and likely biliary colic episode Plan: * abdomen US * c/w IVF * pain control * NPO * further recs per Dr. Sachin Bajwa, PGY 1 - Date & Time Date: 03/05/18 Time: 05:44
--- NOTE | 2018-03-05 07:11 | CP.PCM.CON ---
<Yonathan Shen - Last Filed: 03/05/18 09:21> History of Present Illness - History of Present Illness History of Present Illness: PGY-4 GI Fellow Consult Note Pt is a 47 yo F with hypothyroidism and h/o cholelithiasis presenting with abdominal pain. She states other day she was eating tacos when a few hours later she had acute onset, sharp, RUQ pain with radiation to back associate with nausea but not emesis. She states pain was so severe that she felt short of breath with it as well. She took some aleve without relief. States that she moves her bowel day or every other day with brown stool, though she does report some intermittent constipation. She reports a history of anemia that is attributed to menorrhagia. She denies any weight loss, dysphagia, hematemesis, melena nor hematochezia. She has not had any prior endoscopic evaluation. 12 point ROS negative other than stated above MHx: See above SurgHx: Thyroidectomy for goiter, tubal ligation Meds: levothyroxine FamHx: Denied GI problems SocHx: Negative x 3 All: NKDA Past Patient History - Infectious Disease Hx of Infectious Diseases: None - Tetanus Immunizations Tetanus Immunization: Unknown - Past Medical History & Family History Past Medical History?: Yes - Past Social History Smoking Status: Never Smoked - CARDIAC Hx Cardiac Disorders: No - PULMONARY Hx Respiratory Disorders: No - NEUROLOGICAL Hx Neurological Disorder: No - HEENT Hx HEENT Problems: Yes (sinusitis) - RENAL Hx Chronic Kidney Disease: No - ENDOCRINE/METABOLIC Hx Endocrine Disorders: Yes Hx Hypothyroidism: Yes - HEMATOLOGICAL/ONCOLOGICAL Hx Blood Disorders: Yes Hx Anemia: Yes (chronic anemia) - INTEGUMENTARY Hx Dermatological Problems: No - MUSCULOSKELETAL/RHEUMATOLOGICAL Hx Musculoskeletal Disorders: No Hx Falls: No - GASTROINTESTINAL Hx Gastrointestinal Disorders: Yes Other/Comment: Gall stones - GENITOURINARY/GYNECOLOGICAL Hx Genitourinary Disorders: Yes Other/Comment: miscarriage and D&C in 05/04, also small fibroids - PSYCHIATRIC Hx Psychophysiologic Disorder: Yes Hx Anxiety: Yes Hx Substance Use: No - SURGICAL HISTORY Hx Surgeries: Yes Other/Comment: thyroidectomy. left fallopian tube removed in 1992. D&C in 05/04 - ANESTHESIA Hx Anesthesia: Yes Hx Anesthesia Reactions: No Hx Malignant Hyperthermia: No Meds Allergies/Adverse Reactions: Allergies Allergy/AdvReac Type Severity Reaction Status Date / Time No Known Allergies Allergy Verified 03/04/18 23:21 - Medications Medications: Current Medications Acetaminophen (Tylenol 325mg Tab) 650 mg PO Q4H PRN PRN Reason: Pain, Mild (1-3) Sodium Chloride (Sodium Chloride 0.9%) 1,000 mls @ 100 mls/hr IV .Q10H STA Stop: 03/05/18 12:18 Last Admin: 03/05/18 02:25 Dose: 100 mls/hr Sodium Chloride (Sodium Chloride 0.45%) 1,000 mls @ 80 mls/hr IV .[id number] MEDARDO Last Admin: 03/05/18 05:49 Dose: 80 mls/hr Levothyroxine Sodium (Synthroid) 200 mcg PO ACB MEDARDO Morphine Sulfate (Morphine) 1 mg IVP Q3H PRN PRN Reason: Pain, moderate (4-7) Last Admin: 03/05/18 05:48 Dose: 1 mg Ondansetron HCl (Zofran Inj) 4 mg IVP Q6H PRN PRN Reason: Nausea/Vomiting Last Admin: 03/05/18 05:48 Dose: 4 mg Physical Exam - Constitutional Appears: Well, Non-toxic, No Acute Distress, Other (obese) - Head Exam Head Exam: ATRAUMATIC, NORMAL INSPECTION - Eye Exam Eye Exam: EOMI, Normal appearance. absent: Conjunctival injection, Scleral icterus - ENT Exam ENT Exam: Mucous Membranes Moist, Normal Exam, Normal External Ear Exam. absent: Mucous Membranes Dry - Respiratory Exam Respiratory Exam: Clear to Auscultation Bilateral, NORMAL BREATHING PATTERN. absent: Accessory Muscle Use, Respiratory Distress - Cardiovascular Exam Cardiovascular Exam: REGULAR RHYTHM, RRR - GI/Abdominal Exam GI & Abdominal Exam: Normal Bowel Sounds, Soft. absent: Bruit, Diminished Bowel Sounds, Distended, Firm, Guarding, Hernia, Organomegaly, Pulsatile Mass, Rebound, Rigid, Tenderness Additional comments: exam limited by body habitus - Rectal Exam Rectal Exam: Deferred - Extremities Exam Extremities exam: Positive for: normal inspection. Negative for: tenderness - Neurological Exam Neurological exam: Alert, CN II-XII Intact, Oriented x3 - Psychiatric Exam Psychiatric exam: Normal Affect, Normal Mood - Skin Skin Exam: Normal Color, Warm Results - Vital Signs Recent Vital Signs: Last Vital Signs Temp 98 F 03/05/18 04:22 Pulse 62 10/15/18 04:22 Resp 18 03/05/18 05:01 BP 114/73 03/05/18 04:22 Pulse Ox 100 03/05/18 04:22 - Labs Result Diagrams: 03/05/18 00:05 03/05/18 00:05 Labs: Laboratory Results - last 24 hr 03/05/18 03/05/18 03/05/18 00:05 00:05 00:05 WBC 9.8 D RBC 4.63 Hgb 8.9 L Hct 29.5 L MCV 63.7 L D MCH 19.2 L MCHC 30.2 L RDW 20.2 H Plt Count 553 H MPV 8.5 Gran % 63.0 Lymph % (Auto) 25.9 [place] % (Auto) 10.2 H Eos % (Auto) 0.4 L Baso % (Auto) 0.5 Gran # 6.14 Lymph # (Auto) 2.5 [place] # (Auto) 1.0 H Eos # (Auto) 0.0 Baso # (Auto) 0.05 PT 13.6 H INR 1.19 APTT 28.5 Sodium 138 Potassium 4.4 Chloride 105 Carbon Dioxide 22 Anion Gap 15 BUN 14 Creatinine 0.7 Est GFR ( Amer) > 60 Est GFR (Non-Af Amer) > 60 Random Glucose 99 Calcium 9.8 Phosphorus 4.3 Magnesium 1.9 Total Bilirubin 0.6 AST 25 ALT 15 Alkaline Phosphatase 46 Total Protein 8.6 H Albumin 4.3 Globulin 4.3 Albumin/Globulin Ratio 1.0 L Lipase Urine Color Urine Appearance Urine pH Ur Specific [place] Urine Protein Urine Glucose (UA) Urine Ketones Urine Blood Urine Nitrate Urine Bilirubin Urine Urobilinogen Ur Leukocyte Esterase Urine RBC Urine WBC Ur Epithelial Cells Urine Bacteria 03/05/18 03/05/18 00:05 01:59 WBC RBC Hgb Hct MCV MCH MCHC RDW Plt Count MPV Gran % Lymph % (Auto) [place] % (Auto) Eos % (Auto) Baso % (Auto) Gran # Lymph # (Auto) [place] # (Auto) Eos # (Auto) Baso # (Auto) PT INR APTT Sodium Potassium Chloride Carbon Dioxide Anion Gap BUN Creatinine Est GFR ( Amer) Est GFR (Non-Af Amer) Random Glucose Calcium Phosphorus Magnesium Total Bilirubin AST ALT Alkaline Phosphatase Total Protein Albumin Globulin Albumin/Globulin Ratio Lipase 22 L Urine Color Yellow Urine Appearance Clear Urine pH 6.0 Ur Specific [place] 1.025 Urine Protein Trace H Urine Glucose (UA) Negative Urine Ketones Trace H Urine Blood Small H Urine Nitrate Negative Urine Bilirubin Negative Urine Urobilinogen 0.2 Ur Leukocyte Esterase Negative Urine RBC 1 - 3 Urine WBC 0 - 2 Ur Epithelial Cells 1 - 3 Urine Bacteria Few Assessment & Plan - Assessment and Plan (Free Text) Assessment: 47 yo BF with h/o cholelithiasis, obesity presenting with abdominal pain. # Abdominal pain: Likely due to biliary related pain due to cholelithiasis seen on CT. Has multiple risk factors including age, genders, fertile and obesity. No signs of obstructive and liver test unremarkable. Perhaps passed stone or sludge. Lipase wnl. Gen surg following and RUQ US pending. # CRC Screening: Pt and > 45 yo; therefore would benefit from screening endoscopy, both EGD+CSPY given anemia, though suspect it may be due to heavy menses/fibroids. Plan: - F/u Abd US - Gen Surg consulted --- Defer timing of Cholecystectomy to them - Supportive care - Recommended OP EGD+Colonoscopy to patient and given Dr. Hazel's contact information Thank you for the consult. Will sign off unless Abd US returns with concerning findings. Please page if questions. Pt seen and examined with Dr. Hazel. Please see attestation for further recs/changes. <Kishore Hazel - Last Filed: 03/05/18 16:08> Meds - Medications Medications: Current Medications Acetaminophen (Tylenol 325mg Tab) 650 mg PO Q4H PRN PRN Reason: Pain, Mild (1-3) Hydromorphone HCl (Dilaudid) 0.5 mg IVP Q15M PRN PRN Reason: Pain, moderate (4-7) Stop: 03/05/18 17:35 Lactated Ringer's (Lactated Ringer's) 1,000 mls @ 75 mls/hr IV .[id number] MEDARDO Stop: 03/05/18 17:46 Levothyroxine Sodium (Synthroid) 200 mcg PO ACB MEDARDO Last Admin: 03/05/18 09:12 Dose: 200 mcg Ondansetron HCl (Zofran Inj) 4 mg IVP Q6H PRN PRN Reason: Nausea/Vomiting Last Admin: 03/05/18 05:48 Dose: 4 mg Ondansetron HCl (Zofran Inj) 4 mg IVP ONCE PRN PRN Reason: Nausea/Vomiting Stop: 03/05/18 23:59 Tramadol HCl (Ultram) 50 mg PO Q8 PRN PRN Reason: Pain, moderate (4-7) Results - Vital Signs Recent Vital Signs: Last Vital Signs Temp 98.3 F 03/05/18 13:40 Pulse 62 03/05/18 13:40 Resp 16 03/05/18 13:40 BP 115/60 03/05/18 13:40 Pulse Ox 99 03/05/18 13:40 - Labs Result Diagrams: 03/05/18 09:00 03/05/18 09:00 Labs: Laboratory Results - last 24 hr 03/05/18 03/05/18 03/05/18 00:05 00:05 00:05 WBC 9.8 D RBC 4.63 Hgb 8.9 L Hct 29.5 L MCV 63.7 L D MCH 19.2 L MCHC 30.2 L RDW 20.2 H Plt Count 553 H MPV 8.5 Gran % 63.0 Lymph % (Auto) 25.9 [place] % (Auto) 10.2 H Eos % (Auto) 0.4 L Baso % (Auto) 0.5 Gran # 6.14 Lymph # (Auto) 2.5 [place] # (Auto) 1.0 H Eos # (Auto) 0.0 Baso # (Auto) 0.05 PT 13.6 H INR 1.19 APTT 28.5 Sodium 138 Potassium 4.4 Chloride 105 Carbon Dioxide 22 Anion Gap 15 BUN 14 Creatinine 0.7 Est GFR ( Amer) > 60 Est GFR (Non-Af Amer) > 60 Random Glucose 99 Calcium 9.8 Phosphorus 4.3 Magnesium 1.9 Total Bilirubin 0.6 AST 25 ALT 15 Alkaline Phosphatase 46 Total Protein 8.6 H Albumin 4.3 Globulin 4.3 Albumin/Globulin Ratio 1.0 L Lipase TSH 3rd Generation Urine Color Urine Appearance Urine pH Ur Specific [place] Urine Protein Urine Glucose (UA) Urine Ketones Urine Blood Urine Nitrate Urine Bilirubin Urine Urobilinogen Ur Leukocyte Esterase Urine RBC Urine WBC Ur Epithelial Cells Urine Bacteria 03/05/18 03/05/18 03/05/18 00:05 01:59 09:00 WBC 9.9 RBC 4.37 Hgb 8.3 L Hct 28.1 L MCV 64.3 L MCH 19.0 L MCHC 29.5 L RDW 19.9 H Plt Count 567 H MPV 8.9 Gran % 55.2 Lymph % (Auto) 33.0 [place] % (Auto) 10.6 H Eos % (Auto) 0.7 L Baso % (Auto) 0.5 Gran # 5.46 Lymph # (Auto) 3.3 [place] # (Auto) 1.1 H Eos # (Auto) 0.1 Baso # (Auto) 0.05 PT INR APTT Sodium Potassium Chloride Carbon Dioxide Anion Gap BUN Creatinine Est GFR ( Amer) Est GFR (Non-Af Amer) Random Glucose Calcium Phosphorus Magnesium Total Bilirubin AST ALT Alkaline Phosphatase Total Protein Albumin Globulin Albumin/Globulin Ratio Lipase 22 L TSH 3rd Generation Urine Color Yellow Urine Appearance Clear Urine pH 6.0 Ur Specific [place] 1.025 Urine Protein Trace H Urine Glucose (UA) Negative Urine Ketones Trace H Urine Blood Small H Urine Nitrate Negative Urine Bilirubin Negative Urine Urobilinogen 0.2 Ur Leukocyte Esterase Negative Urine RBC 1 - 3 Urine WBC 0 - 2 Ur Epithelial Cells 1 - 3 Urine Bacteria Few 03/05/18 03/05/18 09:00 09:20 WBC RBC Hgb Hct MCV MCH MCHC RDW Plt Count MPV Gran % Lymph % (Auto) [place] % (Auto) Eos % (Auto) Baso % (Auto) Gran # Lymph # (Auto) [place] # (Auto) Eos # (Auto) Baso # (Auto) PT INR APTT Sodium 138 Potassium 4.1 Chloride 107 Carbon Dioxide 21 Anion Gap 15 BUN 11 Creatinine 0.7 Est GFR ( Amer) > 60 Est GFR (Non-Af Amer) > 60 Random Glucose 88 Calcium 9.1 Phosphorus Magnesium Total Bilirubin 0.5 AST 19 ALT 18 Alkaline Phosphatase 46 Total Protein 8.0 Albumin 3.9 Globulin 4.0 Albumin/Globulin Ratio 1.0 L Lipase TSH 3rd Generation 0.06 L Urine Color Urine Appearance Urine pH Ur Specific [place] Urine Protein Urine Glucose (UA) Urine Ketones Urine Blood Urine Nitrate Urine Bilirubin Urine Urobilinogen Ur Leukocyte Esterase Urine RBC Urine WBC Ur Epithelial Cells Urine Bacteria Attending/Attestation - Attestation I have personally seen and examined this patient.: Yes I have fully participated in the care of the patient.: Yes I have reviewed all pertinent clinical information: Yes Notes (Text): 03/05/18 16:03 I have seen and examined patient with GI fellow. Agree with above documentation with the following additions. In brief, this is a 47 year old female with history of morbid obesity (BMI 54), hypothyroidism, cholelithiasis who presents to hospital with complaint of sudden onset abdominal pain which began yesterday while at work. Prior to this she was in usual state of health, but shortly after eating tacos she developed sharp epigastric/RUQ abdominal pain, 7/10 intensity, radiating to back associated with nausea. She claims that she has recently felt profound fatigue but denies vomiting, fever/chills, weight loss, rectal bleeding, or change in bowel habits. No prior endoscopic evaluation. Obesity Hypothyroidism Abdominal pain - likely secondary to cholelithiasis Anemia - NPO - Await results of abdominal US - LFTs normal, continue to monitor - Follow up surgical recommendations regarding timing of potential cholecystectomy - Patient would eventually benefit from outpatient EGD and age appropriate screening colonoscopy given presence of chronic anemia. Office contact information provided to patient. No further planned GI intervention, will sign off case. Please reconsult as necessary, thank you.
[2018-03-05] MEDS: Levothyroxine 200 MCG TAB PO SCH (09:12)
--- NOTE | 2018-03-05 09:21 | RAD ---
Date of service: 03/04/2018 HISTORY: abd pain COMPARISON: 04/20/2017 FINDINGS: LUNGS: No active pulmonary disease. PLEURA: No significant pleural effusion identified, no pneumothorax apparent. CARDIOVASCULAR: Normal. OSSEOUS STRUCTURES: No significant abnormalities. VISUALIZED UPPER ABDOMEN: Normal. OTHER FINDINGS: None. IMPRESSION: No active disease.
[2018-03-05 09:32] LABS: ALBUMIN 3.9 g/dL (3.0-4.8); ALT/SGPT 18 U/L (7-56); AST/SGOT 19 U/L (14-36); BLOOD UREA NITROGEN 11 mg/dL (7-21); CALCIUM 9.1 mg/dL (8.4-10.5); GFR NON-AFRICAN AMERICAN > 60
[2018-03-05 09:38] LABS: BASO # 0.05 K/mm3 (0.0-2.0); BASO % 0.5 % (0.0-3.0); EOS # 0.1 (0.0-0.7); EOS % 0.7 % (1.5-5.0); GRAN # 5.46 (1.4-6.5); GRAN % 55.2 % (50.0-68.0); HEMOGLOBIN 8.3 g/dL (12.0-16.0); LYMPH # 3.3 (1.2-3.4); MEAN CELL VOLUME 64.3 fl (80.0-105.0); MEAN CORPUSCULAR HGB CONC 29.5 g/dl (31.0-37.0); MEAN PLATELET VOLUME 8.9 fl (7.0-11.0); MONO # 1.1 (0.1-0.6); MONO % 10.6 % (1.0-6.0); RBC 4.37 10^6/uL (3.5-6.1); RED CELL DISTRIBUTION WIDTH 19.9 % (11.5-14.5); WHITE BLOOD COUNT 9.9 10^3/ul (4.5-11.0)
--- NOTE | 2018-03-05 09:54 | US ---
Date of service: 03/05/2018 HISTORY: cholelithiasis COMPARISON: None. TECHNIQUE: Sonographic evaluation of the abdomen. FINDINGS: LIVER: Measures 17.2 cm. Diffusely increased echogenicity of the liver parenchyma. Consistent with mild fatty infiltration of the liver. No mass. Smooth contour. No biliary dilatation. Normal hepatopetal portal venous flow. GALLBLADDER: Cholelithiasis. No mural thickening. No pericholecystic fluid. Negative sonographic Fang sign. COMMON BILE DUCT: Measures 6 mm. No stones. No dilatation. PANCREAS: Unremarkable as visualized. No mass. No ductal dilatation. RIGHT KIDNEY: Measures 10.7cm. Normal echogenicity. No calculus, mass, or hydronephrosis. LEFT KIDNEY: Measures 10.4cm. Parapelvic upper pole cyst, 2.3 x 2.6 x 2.8 cm. No solid mass. No calculus or hydronephrosis. SPLEEN: Normal in size and contour. No mass. AORTA: No aneurysmal dilatation. IVC: Unremarkable. OTHER FINDINGS: None. IMPRESSION: Cholelithiasis. No sonographic evidence of cholecystitis. Mild fatty infiltration of the liver. Incidental 2.8 cm left parapelvic renal cyst.
--- NOTE | 2018-03-05 10:44 | CT ---
Date of service: 03/05/2018 PROCEDURE: CT Abdomen and Pelvis with contrast HISTORY: RUQ pain - r/o cholecystitis, hx of gb stones COMPARISON: None. TECHNIQUE: Contrast dose: 150 cc of Omnipaque 350 Radiation dose: Total exam DLP = 1492 mGy-cm. This CT exam was performed using one or more of the following dose reduction techniques: Automated exposure control, adjustment of the mA and/or kV according to patient size, and/or use of iterative reconstruction technique. FINDINGS: LOWER THORAX: Unremarkable. LIVER: Unremarkable. No gross lesion or ductal dilatation. GALLBLADDER AND BILE DUCTS: Multiple small lucent stones PANCREAS: Unremarkable. No gross lesion or ductal dilatation. SPLEEN: Unremarkable. ADRENALS: Unremarkable. No mass. KIDNEYS AND URETERS: Unremarkable. No hydronephrosis. No solid mass. VASCULATURE: Unremarkable. No aortic aneurysm. BOWEL: Unremarkable. No obstruction. No gross mural thickening. APPENDIX: Normal appendix. PERITONEUM: Minimal free fluid in the pelvis LYMPH NODES: Unremarkable. No enlarged lymph nodes. BLADDER: Unremarkable. REPRODUCTIVE: Lobulated fibroid uterus BONES: No acute fracture. OTHER FINDINGS: The report concurs with the preliminary [facility] report IMPRESSION: Multiple gallstones. Fibroid uterus. Minimal free fluid in the pelvis
--- NOTE | 2018-03-05 11:04 | CARD ---
APPROVED REPORT Date of service: 03/04/2018 EKG Measurement Heart [id number] [id number] <Conclusion> Normal sinus rhythm Poor R Progression V1-V3.
[2018-03-05] MEDS ORDERED: Bupivacaine 0.5% 50 ML IJ ONE (13:23)
[2018-03-05] MEDS ORDERED: Iohexol 240 (50 ml) ONE (13:23)
[2018-03-05] MEDS ORDERED: Midazolam 2 MG/2 ML VIAL ONE (14:18)
[2018-03-05] MEDS ORDERED: Propofol 10 mg/ml Inj (20 ML) ONE (14:18)
[2018-03-05] MEDS ORDERED: Rocuronium 10 mg/ml (5 ml) ONE (14:25)
[2018-03-05] MEDS ORDERED: Neostigmine Methylsulfate 3mg/3ml Syringe IV ONE (15:28)
[2018-03-05] MEDS ORDERED: Glycopyrrolate 0.2 mg/ml (2ml vial) ONE (15:28)
[2018-03-05] MEDS ORDERED: HYDROmorphone 1 mg/ml ISec IVP PRN (15:34)
[2018-03-05] MEDS ORDERED: Lactated Ringer's 1,000 ML IV SCH (15:45)
--- NOTE | 2018-03-05 15:51 | PCM.SURG1 ---
Surgeon's Initial Post Op Note - Surgeon's Notes Surgeon: Dr. Stephenson Engine Installer: Dr. Pablo PGY4, Dr. Hardy PGY3 Type of Anesthesia: General Endo, Local Pre-Operative Diagnosis: cholecystitis Operative Findings: inflammed gallbladder, gallstones Post-Operative Diagnosis: same Operation Performed: laparoscopic cholecystectomy Specimen/Specimens Removed: gallbladder Estimated Blood Loss: EBL {In ML}: 10 Blood Products Given: N/A Drains Used: No Drains Post-Op Condition: Good Date of Surgery/Procedure: 03/05/18 Time of Surgery/Procedure: 15:51
[2018-03-05] MEDS ORDERED: HYDROmorphone 1 mg/ml ISec ONE (15:57)
--- NOTE | 2018-03-05 17:03 | HP ---
HISTORY OF PRESENT ILLNESS: I was called last night in the middle of night about the time she came in. She is a 47-year-old female who came in with abdominal pain started the night before, sharp, radiating from her right upper quadrant to her back, she also got nauseous but did not throw up. She woke up feeling better, still nauseous, but the pain returned, came to the emergency room. She is very uncomfortable. She has had gallstones before she said. PAST MEDICAL HISTORY: She has a past medical history of gallstones and hypothyroidism, sinusitis. She had a large left-sided goiter one-time and hypothyroidism. She is chronic anemic. She had a miscarriage and D&C. Had small fibroids. She takes Ativan at nighttime to sleep at times. She has had a thyroidectomy. Also left fallopian tube was removed. FAMILY HISTORY: No known family history. SOCIAL HISTORY: Nonsmoking. No drinking. No drugs. ALLERGIES: NO KNOWN DRUG ALLERGIES. MEDICATIONS: Takes levothyroxine 200 mcg daily. REVIEW OF SYSTEMS: Not fatigued. No acute vision or hearing changes. No sore throat. No shortness of breath or wheezing. No chest pain or palpitations. No edema, dyspnea on exertion or syncope. She has abdominal pain, right upper quadrant. She has nauseousness. Pain goes to her back. No problems urinating. Skin for which she knows is okay. No headache. No dizziness. No sweating. She does not know if she has any adenopathy, does not feel any. She is not anxious or depressed. PHYSICAL EXAMINATION: VITAL SIGNS: She has a 98.6 temperature, 81 pulse, 18 respiratory rate, 137/75 blood pressure and 100% O2 sat on room air. GENERAL: She is alert, nontoxic, morbidly obese, alert and oriented x3 with abdominal pain being medicated and helping. HEENT: Head is atraumatic and normocephalic. Extraocular muscles are intact. Throat is moist. NECK: Supple. No JVD. Good range of motion. CHEST: Clear to auscultation. No wheezes, rhonchi or rales. HEART: Regular rate. Normal S1, S2. ABDOMEN: There is tenderness in the right upper quadrant, there is a little bit of guarding, but no rebound. Decreased bowel sounds. Obese. No back pain. EXTREMITIES: No edema of the legs. NEUROLOGY: GCS is 15. Cranial nerves II through XII grossly intact. SKIN: Warm and dry. No apparent rashes or ulcers. LYMPHATIC: No cervical lymphadenopathy. Thyroid not there, she had a thyroidectomy. LABORATORY DATA: She had multiple tests. There is an ultrasound of the abdomen pending, but they said there are gallstones. Abdomen and pelvis CT scan is pending. Chest x-ray pending. She has a urine which is okay. Chemistry 138 sodium, potassium 4.4, BUN 14, creatinine 0.7, GFR is greater than 60, sugar is 99, calcium is 9.8, phosphorous 4.3, magnesium 1.9, total bili is 0.6, AST is 25, ALT is 15, alk phos 46, total protein is 8.6, albumin is 4.3 and lipase is 22. INR 1.19, 9.8 white count, 8.9 hemoglobin, 29.5 hematocrit with 8.5 MPV and 550 platelets and she is chronically anemic. She tells me she wants to have the surgery. I am hoping maybe today if the cardiac clears her she could have surgery today. This is a history and physical on Zhanna Rosario who has severe abdominal pain and gallstones. Tanmay Heath DO
--- NOTE | 2018-03-05 17:41 | CARD ---
APPROVED REPORT Date of service: 03/05/2018 EXAM: Two-dimensional and M-mode echocardiogram with Doppler and color Doppler. INDICATION Abnormal EKG/Arrhythmia 2D DIMENSIONS Left Atrium (2D)3.5 (1.6-4.0cm)IVSd1.1 (0.7-1.1cm) LVDd4.6 (3.9-5.9cm)PWd1.1 (0.7-1.1cm) LVDs2.6 (2.5-4.0cm)FS (%) 42.5 % LVEF (%)73.6 (>50%) M-Mode DIMENSIONS Aortic Root2.20 (2.2-3.7cm)Aortic Cusp Exc.1.70 (1.5-2.0cm) Aortic Valve AoV Peak Vmwtmldr738.0cm/Taiwo Peak GR.15mmHg Mitral Valve MV E Azfgdmsv138.0cm/sMV A Yecmpolu98.0cm/sE/A ratio1.4 TDI E/Lateral E'0.0E/Medial E'0.0 Tricuspid Valve TR Peak [id number]/sRAP [id number] Peak Gr.6mmHg [id number] LEFT VENTRICLE The left ventricle is normal size. There is normal left ventricular wall thickness. The left ventricular function is normal. The left ventricular ejection fraction is within the normal range. There is normal LV segmental wall motion. The left ventricular diastolic function is normal. RIGHT VENTRICLE The right ventricle is normal size. There is normal right ventricular wall thickness. The right ventricular systolic function is normal. ATRIA The left atrium size is normal. The right atrium size is normal. AORTIC VALVE The aortic valve is normal in structure. No aortic regurgitation is present. There is no aortic valvular stenosis. MITRAL VALVE The mitral valve is mildly thickened. There is no mitral valve regurgitation noted. There is no mitral valve stenosis. TRICUSPID VALVE The tricuspid valve is normal in structure. There is no tricuspid valve regurgitation noted. PULMONIC VALVE The pulmonary valve is normal in structure. There is no pulmonic valvular regurgitation. GREAT VESSELS The aortic root is normal in size. The IVC is normal in size and collapses >50% with inspiration. PERICARDIAL EFFUSION There is no pericardial effusion. <Conclusion> The left ventricle is normal size. There is normal left ventricular wall thickness. The left ventricular function is normal. The left ventricular ejection fraction is within the normal range. There is normal LV segmental wall motion. The left ventricular diastolic function is normal.
[2018-03-05] MEDS ORDERED: HYDROmorphone 0.5 mg/0.5 ml ISec IVP STA (18:05)
[2018-03-05] MEDS ORDERED: HYDROmorphone 1 mg/ml ISec IVP STA (18:07)
--- NOTE | 2018-03-05 22:05 | CON ---
DATE: 03/05/2018 CARDIOLOGY CONSULTATION HISTORY: The patient is a 47-year-old woman, who presents with right upper quadrant pain consistent with a gallbladder disease. The patient is scheduled for gallbladder surgery today. The patient's past medical history is free of cardiac disease however, the patient does complain of recent exertional dizziness. She also complains of occasional weakness. Her past medical history is free of diabetes mellitus, no hypercholesterolemia, no hypertension. However, she is on Synthroid after a thyroidectomy in the past. SOCIAL HISTORY: The patient denies smoking. She works at [employer]. A 14-point review of systems was reviewed in detail. No angina. No dyspnea. Negative pedal edema. No previous cardiac symptomatology other than recent weakness. PHYSICAL EXAMINATION: Blood pressure 130/74, heart rate is in the 60s. Neck: Negative JVD. Lungs: Without rales. Heart rhythm, S1, S2. Extremities: Without edema. EKG is normal sinus rhythm with no acute changes. Telemetry strips reveal occasional sinus tachycardia alternating with sinus bradycardia. LABORATORY DATA: Hemoglobin is 8.9. Chemistries, BUN and creatinine are normal. No thyroid functions were performed. IMPRESSION: 1. Acute gallbladder disease. 2. The patient is for gallbladder surgery today. 3. Hypothyroidism secondary to thyroidectomy. 4. Obesity. 5. Anemia. 6. Progressive weakness, which may be due to her anemia, which has not been worked out. Given these findings, I doubt the patient has any acute cardiac issues. However, we will obtain an echocardiogram to evaluate LV function prior to surgery. If her echo was okay, there are no cardiac causes to prevent her from having surgery. Her symptoms may be predominately due to her anemia, which needs to be looked at. Greyson Macias MD
--- NOTE | 2018-03-05 22:29 | CON ---
DATE: 03/05/2018 HISTORY OF PRESENT ILLNESS: This is a 47-year-old female with recent evaluation for possible acute cholecystitis, presenting here with severe and progressively worsening right upper quadrant pain and is now being referred for endocrine evaluation because of known history of hypothyroidism as noted thereof. PAST MEDICAL HISTORY: The patient is known to me from prior outpatient consult and seen over 5 years ago for surgical hypothyroidism for resection of a large multinodular goiter and since then been on levothyroxine 200 mcg once daily given postoperatively. History of morbid obesity with dyslipidemia, hypertensive cardiovascular disease. History of hypertension and dyslipidemia. FAMILY HISTORY: Positive for hypertension and heart disease. SOCIAL HISTORY: The patient has a supportive. No known substance use. REVIEW OF SYSTEMS: As mentioned above, admits to generalized body weakness with episodic bouts of dizziness and lightheadedness, worsened on the day of admission. She denies any precordial chest pain but admits to occasional bouts of shortness of breath especially on exertion. Her oral intake has been variable and nil at this time because of pertaining severe nausea, dyspepsia and intractable right upper quadrant pain as noted. No recent alternations to bowel or urinary pattern. GI: Admits to variable oral intake with nausea and dyspepsia and supervening intense right upper quadrant pain as noted. PHYSICAL EXAMINATION: GENERAL: This is a 47-year-old female in moderate abdominal distress. VITAL SIGNS: Blood pressure of 140/80, pulse of 70 beats per minute and regular, temperature 98, respirations 20, height is 5 feet, weight is 275 pounds. HEENT: Head normocephalic. Eyes anicteric with pinkish conjunctivae. Funduscopy not possible at this time. Ears, nose and throat otherwise normal. NECK: Supple. The thyroid gland is nonpalpable and anterior neck area is flat with no possible masses or lymph nodes at this time. HEART: Adynamic precordium, S1, S2 are rapid and regular. LUNGS: Clear to auscultation. ABDOMEN: Obese, soft with positive bowel sounds. EXTREMITIES: No peripheral edema. Pulses are 2+ bilaterally. LABORATORY DATA: Chemistry: BUN of 14, sodium 138, potassium 4.4, chloride 105, CO2 of 22, glucose 99, and creatinine 0.7. Her lipase level is 22. ASSESSMENT: This is a 47-year-old morbidly obese female who presented here with intense right upper quadrant pain and associated nausea and dyspepsia and the possibility of an acute cholecystitis with underlying known history of cholelithiasis is being excluded at this time. She also has significant history of surgical hypothyroidism related to a near total thyroidectomy undertaken for a large multinodular goiter some years ago. PLAN OF MANAGEMENT: We will concur with present radiologic workup at this time. We will also obtain serum chemistry and as needed. We will obtain a lipid panel to rule out any underlying dyslipidemia especially in the light of concomitant morbid obesity as noted thereof. We will also obtain a total TSH and a free T4 with thyroglobulin panel to screen and underlying autoimmunity. We will follow. Kay Sheridan MD (Delete this signature block when dictator is a preceptor.) cc: MD Jany (Delete if not dictated.)
--- NOTE | 2018-03-06 04:01 | OP ---
PROCEDURE DATE: 03/05/2018 PREOPERATIVE DIAGNOSIS: Cholecystitis. POSTOPERATIVE DIAGNOSIS: Cholecystitis. PROCEDURE DONE: Laparoscopic cholecystectomy. SURGEON: Juan F Stephenson MD TIRE BUILDER OPERATOR: Moise Hardy DO and Dr. Pablo ANESTHESIA ADMINISTERED BY: Dr. Lieberman TYPE OF ANESTHESIA: General anesthesia. INDICATIONS: Mrs. Marlene Chao is a 47-year-old female who came in with complaints of epigastric pain radiating to right upper quadrant. She has had multiple events in the past. Abdominal ultrasound was done which indicated cholelithiasis and at which point, made the decision to take the patient to the operating room for laparoscopic cholecystectomy. OPERATIVE NOTE: The patient was brought to the operating room where surgical safety checklist was performed. Preoperatively, patient received 2 g of IV Ancef. General anesthesia was induced. A supraumbilical midline incision was made and carried down to the fascia. A closed technique was used to enter the peritoneal cavity with a Veress needle and used to establish our pneumoperitoneum. We then entered the abdominal cavity through the 12 mm supraumbilical incision via Visiport. The laparoscope was inserted into the abdomen under direct vision. Subsequently the following ports were inserted under direct visualization along with local anesthetic in a typical fashion. Additional three 5-mm ports were placed, one 5-mm port along the epigastric region, the following two 5-mm ports were placed along the right costal margin. All were done via direct visualization. The peritoneal cavity was inspected and no abnormalities were found. The patient was then placed in reverse Trendelenburg position with the right side up. Omental attachments of gallbladder were gently swept away until an atraumatic grasper could be used to retract the fundus of the gallbladder superiorly over the dome of the liver. Filmy adhesions between the gallbladder and omentum as well as duodenum were also lysed bluntly and sharply. The infundibulum was identified and subsequently retracted laterally towards the right lower quadrant using another grasper. This maneuver exposed Calot triangle beautifully. The peritoneum overlying the gallbladder infundibulum was incised and the anterior and posterior peritoneum were dissected. At this point, the triangle was dissected to expose the cystic duct lymph node as well as the cystic artery, the lower third of the cystic plate and the cystic duct. Once these structures were carefully identified, the cystic artery was divided first, then further dissection of the triangle was completed. Once it was determined that the only structure remaining entering the gallbladder was the cystic duct, it was doubly clipped and divided. The electrocautery hook was then used to separate the peritoneal attachments between the gallbladder and its bed in the liver. The gallbladder fossa and cystic artery were inspected to ensure that there was no bleeding. Hemostasis was achieved with electrocautery. There was no leakage of bile noted from the cystic duct stump. The gallbladder once freed, was placed in an endoscopic retrieval bag and easily removed from the abdomen through the supraumbilical port. The specimen was sent to Pathology. The fascia at the supraumbilical port was then reapproximated using multiple interrupted 0-Vicryl sutures. Supraumbilical defect was approximated. Subsequently, all incisions were closed using 4-0 Monocryl sutures in an interrupted fashion for the three 5 mm ports and in a continuous subcuticular fashion for the 12-mm supraumbilical port. Afterwards, the liver bed was extensively irrigated. All incisions were closed using 4-0 Monocryl. The 5-mm ports were closed in an interrupted fashion, whereas the supraumbilical incision was closed in a continuous subcuticular fashion. The operative field was cleaned and dried. Steri-Strips were not applied, however, Dermabond was used and applied along all four incisions. There were no intraoperative complications and the estimated blood loss for the case was 10 mL. All instrument and sponge counts were correct. A surgical debriefing was performed and the patient was extubated and transferred to PACU in stable condition. Moise Hardy DO Juan F Stephenson MD. MTDGail
[2018-03-06] MEDS: Levothyroxine 200 MCG TAB PO SCH (07:19)
--- NOTE | 2018-03-06 07:57 | CP.PCM.PN ---
Subjective - Date & Time of Evaluation Date of Evaluation: 03/06/18 Time of Evaluation: 07:54 - Subjective Subjective: Surgery: Dr. Stephenson Patient doing well this am. Complains of some muscle type pain in the abdomen but only required 1 dose of oral pain medication last night. Denies n/v/f/c. + void. Objective - Vital Signs/Intake and Output Vital Signs (last 24 hours): Temp Pulse Resp BP Pulse Ox 97.6 F 108 H 19 146/86 96 03/05/18 18:09 03/05/18 22:00 03/05/18 18:09 03/05/18 18:09 03/05/18 18:09 - Medications Medications: Current Medications Acetaminophen (Tylenol 325mg Tab) 650 mg PO Q4H PRN PRN Reason: Pain, Mild (1-3) Levothyroxine Sodium (Synthroid) 200 mcg PO ACB MEDARDO Last Admin: 03/06/18 07:19 Dose: 200 mcg Ondansetron HCl (Zofran Inj) 4 mg IVP Q6H PRN PRN Reason: Nausea/Vomiting Last Admin: 03/05/18 05:48 Dose: 4 mg Tramadol HCl (Ultram) 50 mg PO Q8 PRN PRN Reason: Pain, moderate (4-7) Last Admin: 03/05/18 17:19 Dose: 50 mg - Labs Labs: 03/05/18 09:00 03/05/18 09:00 PT 13.6 SECONDS (9.4-12.5) H 03/05/18 00:05 INR 1.19 03/05/18 00:05 APTT 28.5 Seconds (25.1-36.5) 03/05/18 00:05 - Constitutional Appears: Non-toxic, No Acute Distress - Head Exam Head Exam: ATRAUMATIC, NORMOCEPHALIC - Eye Exam Eye Exam: EOMI, Normal appearance - ENT Exam ENT Exam: Mucous Membranes Moist - Respiratory Exam Respiratory Exam: NORMAL BREATHING PATTERN. absent: Respiratory Distress - Cardiovascular Exam Cardiovascular Exam: REGULAR RHYTHM. absent: Tachycardia - GI/Abdominal Exam GI & Abdominal Exam: Soft. absent: Distended, Guarding, Tenderness, Rebound Additional comments: incision CDI, dermabond closure - Neurological Exam Neurological Exam: Alert, Awake, Oriented x3 - Psychiatric Exam Psychiatric exam: Normal Affect, Normal Mood - Skin Skin Exam: Warm. absent: Dry Assessment and Plan - Assessment and Plan (Free Text) Assessment: 47 y/o female s/p lap rowena Plan: -cleared for d/c home -f/u in 2 weeks in office -can shower -tylenol for pain -reg diet -d/w DR. Sachin Hillman PGY4
[2018-03-06 08:09] VITALS: BP 118/66; RESP 20; TEMP 98.4; O2SAT 99
[2018-03-06 08:37] LABS: HEMOGLOBIN 8.1 g/dL (12.0-16.0); MEAN CELL VOLUME 64.1 fl (80.0-105.0); MEAN CORPUSCULAR HEMOGLOBIN 18.9 pg (25.0-35.0); MEAN CORPUSCULAR HGB CONC 29.5 g/dl (31.0-37.0); MEAN PLATELET VOLUME 8.6 fl (7.0-11.0); RBC 4.29 10^6/uL (3.5-6.1); WHITE BLOOD COUNT 11.5 10^3/ul (4.5-11.0)
[2018-03-06 08:52] LABS: ALBUMIN 3.7 g/dL (3.0-4.8); ALT/SGPT 32 U/L (7-56); AST/SGOT 37 U/L (14-36); BLOOD UREA NITROGEN 9 mg/dL (7-21); CALCIUM 8.7 mg/dL (8.4-10.5); GFR NON-AFRICAN AMERICAN > 60; HDL CHOLESTEROL 42 mg/dL (29-60)
[2018-03-06 08:58] LABS: LDL CHOLESTEROL 104 mg/dL (0-129)
[2018-03-06 09:02] LABS: FREE T4 1.92 ng/dL (0.78-2.19); T4 17.3 ug/dL (5.5-11.0)
[2018-03-06 10:13] VITALS: PULSE 70
--- NOTE | 2018-03-06 13:43 | PN ---
DATE: 03/06/2018 ENDO FOLLOWUP NOTE LOCATION: In room 373. SUBJECTIVE: This is a 47-year-old female, presenting here with sudden onset of intense right upper quadrant pain and evaluated to have possible acute cholecystitis with underlying cholelithiasis and is now being followed closely for metabolic management. She also has very well known history of surgical hypothyroidism and has been on a very high-dose levothyroxine replacement therapy as given by her primary physician on the outside. Her latest chemistry showed a BUN of 9, sodium 136, potassium 3.9, chloride 104, CO2 of 24, glucose 87 and creatinine 0.8. Her thyroid studies done comprehensively showed a T4 or thyroxine level of 17.3 with a free T4 of 1.92 and a TSH of less than 0.02. ASSESSMENT: This is a 47-year-old female with overt euthyroid hyperthyroxinemia, most likely related to over replacement of levothyroxine as given by her primary physician with no recent followup with her payroll benefits clerk. She has a significant history of near total thyroidectomy for management of a large multinodular goiter and associated compressive and obstructive symptoms thereof. PLAN OF MANAGEMENT: Because of the markedly elevated thyroxine values with a suppressed TSH, it would be more prudent especially for the potential cardiovascular adverse side effects to lower her levothyroxine to at least 200 mcg once daily as ordered. Then, she can go back to her usual dose as indicated. We will follow. Kay Sheridan MD
[2018-03-07 20:39] LABS: THYROGLOBULIN 0.4 ng/mL (2.8-40.9)
== END 2018-03-06 13:03 | disposition home or self-care (01) ==
LOC: ED 22:52 → ERH 03-05 03:02 → 3RSO 03-05 04:46
PROVIDERS: ADMIT Family Medicine; ATTEND Family Medicine
DX: K80.10 Calculus of gallbladder with chronic cholecystitis without obstruction (principal); E66.01 Morbid (severe) obesity due to excess calories; Z68.43 Body mass index [BMI] 50.0-59.9, adult; E89.0 Postprocedural hypothyroidism; D64.9 Anemia, unspecified; E78.5 Hyperlipidemia, unspecified; I11.9 Hypertensive heart disease without heart failure; D25.9 Leiomyoma of uterus, unspecified
CPT/HCPCS: 36415; 47562; 71045; 74177; 76700; 80053; 80061; 81001; 83036; 83690; 83735; 84100; 84432; 84439; 84443; 84703; 85025; 85027; 85610; 85730; 86800; 87086; 88304; 93005; 93306; 96361; 96374; 96375; 96376; 99285; G0378; J0690; J1170; J2001; J2250; J2270; J2405; J2704; J2710; J3010; J7030; Q9966; Q9967

== ENCOUNTER 2018-03-10 00:52 | Emergency (ER) | payer BC ==
[2018-03-10 00:53] VITALS: BMI 53.6
[2018-03-10 01:19] VITALS: RESP 18
--- NOTE | 2018-03-10 01:22 | ED PDOC ---
Arrival/HPI - General Chief Complaint: Abdominal Pain Time Seen by Provider: 03/10/18 01:19 Historian: Patient - History of Present Illness Narrative History of Present Illness (Text): 03/10/18 01:59 47 year old female, whose past medical history includes a cholecystectomy, who presents to the ED complaining of nausea and abdominal pain x 2 days. Patient states she had a cholecystectomy performed on 03/04/18 and was d/c from the hospital 03/06/18. Patient denies any fever, chills, vomiting, diarrhea, back pain, chest pain, neck pain, or any other complaints. Time/Duration: < week (2 days) Symptom Onset: Gradual Symptom Course: Unchanged Activities at Onset: Light Context: Home Past Medical History - Provider Review Nursing Documentation Reviewed: Yes - Infectious Disease Hx of Infectious Diseases: None - Tetanus Immunization Tetanus Immunization: Unknown - Past Medical History Past Medical History: No Previous - Cardiac Hx Cardiac Disorders: No - Pulmonary Hx Respiratory Disorders: No - Neurological Hx Neurological Disorder: No - HEENT Hx HEENT Disorder: Yes (sinusitis) - Renal Hx Renal Disorder: No - Endocrine/Metabolic Hx Endocrine Disorders: Yes Hx Hypothyroidism: Yes - Hematological/Oncological Hx Blood Disorders: Yes Hx Anemia: Yes (chronic anemia) - Integumentary Hx Dermatological Disorder: No - Musculoskeletal/Rheumatological Hx Musculoskeletal Disorders: No Hx Falls: No - Gastrointestinal Hx Gastrointestinal Disorders: Yes Hx Gall Bladder Disease: Yes Other/Comment: Gall stones - Genitourinary/Gynecological Hx Genitourinary Disorders: Yes Other/Comment: miscarriage and D&C in 05/04, also small fibroids - Psychiatric Hx Substance Use: No - Surgical History Hx Cholecystectomy: Yes Other/Comment: thyroidectomy. left fallopian tube removed in 1992. D&C in 05/04 - Anesthesia Hx Anesthesia: Yes Hx Anesthesia Reactions: No Hx Malignant Hyperthermia: No - Suicidal Assessment Feels Threatened In Home Enviroment: No Family/Social History - Physician Review Nursing Documentation Reviewed: Yes Family/Social History: Unknown Family HX Smoking Status: Never Smoked Hx Alcohol Use: No Hx Substance Use: No Hx Substance Use Treatment: No Allergies/Home Meds Allergies/Adverse Reactions: Allergies No Known Allergies Allergy (Verified 03/04/18 23:21) Home Medications: Home Meds Medication Instructions Recorded Confirmed Levothyroxine Sodium [Unithroid] 200 mcg PO DAILY 08/10/16 03/10/18 Review of Systems - Physician Review All systems were reviewed & negative as marked: Yes - Review of Systems Constitutional: Normal Eyes: Normal ENT: Normal Respiratory: Normal. absent: SOB, Cough Cardiovascular: Normal. absent: Chest Pain Gastrointestinal: Abdominal Pain, Nausea. absent: Diarrhea, Vomiting Genitourinary Female: Normal. absent: Dysuria, Hematuria Musculoskeletal: Normal. absent: Back Pain, Neck Pain Skin: Normal. absent: Rash Neurological: Normal. absent: Headache, Dizziness Endocrine: Normal Hemo/Lymphatic: Normal Psychiatric: Normal Physical Exam - Physical Exam Narrative Physical Exam (Text): 03/10/18 02:12 Gen: NAD, cooperative, well appearing, non-toxic. Head: NCAT. EYES: PERRL, EOMI, conjunctiva clear, EARS: TMs clear MOUTH: moist MM, posterior pharynx without erythema or exudate, uvula midline. CV: (+) S1S2, RRR, no M/G/R LUNGS: CTA B/L, No W/R/R, good air movement Abd: Soft, distended, port sites clean, dry, and intact, NTTP, diffusely tender, no guarding, rebound or rigidity. Neuro: AAO x 3, GCS 15, CN 2-12 intact, motor and sensory grossly intact, 5/5 muscle strength B/L UE's and LE's. ext: no cyanosis or edema. Vital Signs Reviewed: Yes Vital Signs Temp Pulse Resp BP Pulse Ox 03/10/18 01:18 99.9 F H 89 18 146/83 99 Temperature: Febrile Blood Pressure: Normal Pulse: Regular Respiratory Rate: Normal Appearance: Positive for: Well-Appearing, Non-Toxic, Comfortable Pain Distress: None Mental Status: Positive for: Alert and Oriented X 3 Medical Decision Making ED Course and Treatment: 03/10/18 01:20 Impression: 47 year old female presents to the ED complaining of nausea and abdominal pain x 2 days. Plan: -- Labs -- Zofran -- Sodium Chloride -- HCG, Qualitative Urine -- UA Progress Notes: EKG reviewed, shows NSR at 87 bpm. Normal intervals. Normal axis. No ST elevations. Nonspecific T wave changes. 03/10/18 02:28 president [employer] ceo [employer] paged, will evaluate pt. 03/10/18 03:52 Pt evaluated by surgical garment inspector, states exam is normal. Pt should follow up with Dr. Stephenson on Monday. 03/10/18 04:08 Obstruction series showed no free air, no air fluid levels. No acute findings. 03/10/18 04:15 Hemoglobin is 8.2. On 03/06/18 hemoglobin was 8.1. Per surgery recommendation, pt given Tramadol. Pt also given Rx for Tramadol, Zofran and Colace. Pt instructed to f/u with her surgeon, Dr. Stephenson in 2 days and RTED for new, worsening or concerning symptoms. Pt agreeable w/POC and verbalized understanding of her d/c instructions. - Scribe Statement The provider has reviewed the documentation as recorded by the Scribe Michaela Easley All medical record entries made by the Scribe were at my direction and personally dictated by me. I have reviewed the chart and agree that the record accurately reflects my personal performance of the history, physical exam, medical decision making, and the department course for this patient. I have also personally directed, reviewed, and agree with the discharge instructions and disposition. Disposition/Present on Arrival - Present on Arrival Any Indicators Present on Arrival: No History of DVT/PE: No History of Uncontrolled Diabetes: No Urinary Catheter: No History of Decub. Ulcer: No History Surgical Site Infection Following: None - Disposition Have Diagnosis and Disposition been Completed?: Yes Diagnosis: Post-operative pain Disposition: HOME/ ROUTINE Disposition Time: 04:25 Patient Plan: Discharge Condition: STABLE Discharge Instructions (ExitCare): Postoperative Pain (DC) Additional Instructions: MARY CARROLL, thank you for letting us take care of you today. Your provider was Dottie Brower MD and you were treated for ABD PAIN. The emergency medical care you received today was directed at your acute symptoms. If you were prescribed any medication, please fill it and take as directed. It may take several days for your symptoms to resolve. Return to the Emergency Department if your symptoms worsen, do not improve, or if you have any other problems. Please contact your doctor in 2 days. Bring any paperwork you were given at discharge with you along with any medications you are taking to your follow up visit. Our treatment cannot replace ongoing medical care by a primary care provider outside of the emergency department. Thank you for allowing the [facility] team to be part of your care today. Prescriptions: Docusate [Colace] 100 mg PO DAILY #10 cap Ondansetron ODT [Zofran ODT] 4 mg PO BID PRN #10 odt PRN Reason: Nausea/Vomiting RX: traMADol [Ultram] 50 mg PO TID PRN #15 tab PRN Reason: Pain, Severe (8-10) Referrals: Juan F Stephenson MD [Staff Provider] - Follow up with primary Forms: [employer] (Malawian)
[2018-03-10] MEDS ORDERED: Sodium Chloride 0.9% 1,000 ML IV STA (02:13)
[2018-03-10 02:48] LABS: BASO # 0.05 K/mm3 (0.0-2.0); BASO % 0.4 % (0.0-3.0); EOS # 0.5 (0.0-0.7); EOS % 3.7 % (1.5-5.0); GRAN # 9.69 (1.4-6.5); GRAN % 71.8 % (50.0-68.0); HEMOGLOBIN 8.2 g/dL (12.0-16.0); LYMPH # 2.1 (1.2-3.4); LYMPH % 15.8 % (22.0-35.0); MEAN CELL VOLUME 63.9 fl (80.0-105.0); MEAN CORPUSCULAR HEMOGLOBIN 19.2 pg (25.0-35.0); MEAN PLATELET VOLUME 8.7 fl (7.0-11.0); MONO # 1.1 (0.1-0.6); MONO % 8.3 % (1.0-6.0); RBC 4.27 10^6/uL (3.5-6.1); RED CELL DISTRIBUTION WIDTH 20.3 % (11.5-14.5); WHITE BLOOD COUNT 13.5 10^3/ul (4.5-11.0)
[2018-03-10 03:00] LABS: ALB/GLOB RATIO 0.9 (1.1-1.8); ALBUMIN 3.9 g/dL (3.0-4.8); ALT/SGPT 19 U/L (7-56); AST/SGOT 27 U/L (14-36); BLOOD UREA NITROGEN 9 mg/dL (7-21); CALCIUM 8.8 mg/dL (8.4-10.5); GFR NON-AFRICAN AMERICAN > 60; LIPASE 45 U/L (23-300)
--- NOTE | 2018-03-10 03:57 | CP.PCM.CON ---
History of Present Illness - History of Present Illness History of Present Illness: 47F with PMH of cholelithiasis, hypothyroid, s/p laparoscopic cholecystectomy POD5 [place] [facility] with complaints of nausea and bloating. Patient reports she had normal BM this past monday. She had been tolerating regular diet s tj discharge. However, patient states after having a frozen dinner on night she became bloated and felt nauseous. Patient reports passing flatus and denies vomiting. At time of examination she denies headaches/dizziness, fever/chills, chest pain, shortness of breath, vomiting, diarrhea. PMH: cholelithiasis, hypothyroid PSH: tubal ligation after exlap for ectopic , goiter removal, D&C 2013 ALL: nkda Social: denies Review of Systems - Review of Systems Review of Systems: 10 pt ROS unremarkable, except as stated in HPI Past Patient History - Infectious Disease Hx of Infectious Diseases: None - Tetanus Immunizations Tetanus Immunization: Unknown - Past Medical History & Family History Past Medical History?: Yes - Past Social History Smoking Status: Never Smoked - CARDIAC Hx Cardiac Disorders: No - PULMONARY Hx Respiratory Disorders: No - NEUROLOGICAL Hx Neurological Disorder: No - HEENT Hx HEENT Problems: Yes (sinusitis) - RENAL Hx Chronic Kidney Disease: No - ENDOCRINE/METABOLIC Hx Endocrine Disorders: Yes Hx Hypothyroidism: Yes - HEMATOLOGICAL/ONCOLOGICAL Hx Blood Disorders: Yes Hx Anemia: Yes (chronic anemia) - INTEGUMENTARY Hx Dermatological Problems: No - MUSCULOSKELETAL/RHEUMATOLOGICAL Hx Musculoskeletal Disorders: No Hx Falls: No - GASTROINTESTINAL Hx Gastrointestinal Disorders: Yes Hx Gall Bladder Disease: Yes Other/Comment: Gall stones - GENITOURINARY/GYNECOLOGICAL Hx Genitourinary Disorders: Yes Other/Comment: miscarriage and D&C in 05/04, also small fibroids - PSYCHIATRIC Hx Substance Use: No - SURGICAL HISTORY Hx Cholecystectomy: Yes Other/Comment: thyroidectomy. left fallopian tube removed in 1992. D&C in 05/04 - ANESTHESIA Hx Anesthesia: Yes Hx Anesthesia Reactions: No Hx Malignant Hyperthermia: No Meds Allergies/Adverse Reactions: Allergies Allergy/AdvReac Type Severity Reaction Status Date / Time No Known Allergies Allergy Verified 03/04/18 23:21 - Medications Medications: Current Medications Sodium Chloride (Sodium Chloride 0.9%) 1,000 mls @ 100 mls/hr IV .Q10H STA Stop: 03/10/18 12:12 Physical Exam - Constitutional Appears: No Acute Distress - Head Exam Head Exam: NORMOCEPHALIC - Eye Exam Eye Exam: EOMI, Normal appearance - ENT Exam ENT Exam: Mucous Membranes Moist - Respiratory Exam Respiratory Exam: NORMAL BREATHING PATTERN - Cardiovascular Exam Cardiovascular Exam: +S1, +S2 - GI/Abdominal Exam GI & Abdominal Exam: Distended, Soft. absent: Guarding, Rebound, Rigid, Tenderness Additional comments: mildly distended - Neurological Exam Neurological exam: Alert, Oriented x3 - Psychiatric Exam Psychiatric exam: Normal Mood - Skin Skin Exam: Dry, Intact, Warm Results - Vital Signs Recent Vital Signs: Last Vital Signs Temp 99.9 F H 03/10/18 01:18 Pulse 89 03/10/18 01:18 Resp 18 03/10/18 01:18 BP 146/83 03/10/18 01:18 Pulse Ox 99 03/10/18 01:18 - Labs Result Diagrams: 03/10/18 02:28 03/10/18 02:28 Labs: Laboratory Results - last 24 hr 03/10/18 03/10/18 02:28 02:28 WBC 13.5 H RBC 4.27 Hgb 8.2 L Hct 27.3 L MCV 63.9 L MCH 19.2 L MCHC 30.0 L RDW 20.3 H Plt Count 606 H MPV 8.7 Gran % 71.8 H Lymph % (Auto) 15.8 L [place] % (Auto) 8.3 H Eos % (Auto) 3.7 Baso % (Auto) 0.4 Gran # 9.69 H Lymph # (Auto) 2.1 [place] # (Auto) 1.1 H Eos # (Auto) 0.5 Baso # (Auto) 0.05 Sodium 135 Potassium 4.4 Chloride 103 Carbon Dioxide 23 Anion Gap 14 BUN 9 Creatinine 0.6 L Est GFR ( Amer) > 60 Est GFR (Non-Af Amer) > 60 Random Glucose 115 H Calcium 8.8 Total Bilirubin 0.9 AST 27 ALT 19 Alkaline Phosphatase 41 Total Protein 8.3 Albumin 3.9 Globulin 4.4 Albumin/Globulin Ratio 0.9 L Lipase 45 Assessment & Plan - Assessment and Plan (Free Text) Assessment: 47F s/p laparoscopic cholecystectomy POD5 with complaints of nausea Plan: -Abdominal xray reviewed; non specific gas bowel pattern -Patient to follow up with Dr. Stephenson -Recommend stool softeners, analgesics prn -No abdominal tenderness noted. LFT's WNL. -Patient should return to ED should her symptoms not improve Further recs per Dr. Carlos Wolf PGY3
[2018-03-10 04:12] LABS: INR 1.27; PARTIAL THROMBOPLASTIN TIME 31.7 Seconds (25.1-36.5); PROTHROMBIN TIME 14.6 SECONDS (9.4-12.5)
[2018-03-10 04:48] LABS: URINE BILIRUBIN NEGATIVE (NEGATIVE); URINE BLOOD MODERATE (NEGATIVE); URINE GLUCOSE (UA) NEGATIVE (NEGATIVE); URINE LEUKOCYTE ESTERASE TRACE Leu/uL (NEGATIVE); URINE PROTEIN TRACE mg/dL (<30 mg/dL); URINE UROBILINOGEN 0.2 E.U./dL (<1 E.U./dL)
[2018-03-10 04:52] LABS: URINE APPEARANCE SL CLOUDY (CLEAR); URINE COLOR YELLOW (YELLOW)
[2018-03-10 05:07] VITALS: TEMP 99.1
[2018-03-10 05:09] VITALS: BP 140/77; PULSE 89; O2SAT 98
[2018-03-10 05:38] LABS: HCG,QUALITATIVE URINE NEGATIVE (NEGATIVE)
[2018-03-10 06:17] LABS: URINE BACTERIA MOD (NEG)
--- NOTE | 2018-03-10 10:26 | RAD ---
Date of service: 03/10/2018 HISTORY: abd pain s/p lap rowena COMPARISON: No prior. FINDINGS: BOWEL: Normal. No obstruction. No free air. BONES: Normal. OTHER FINDINGS: None. IMPRESSION: No significant or acute findings to account for/ related to the clinical presentation.
--- NOTE | 2018-03-10 11:48 | CARD ---
APPROVED REPORT Date of service: 03/10/2018 EKG Measurement Heart [id number] <Conclusion> Normal sinus rhythm Normal Electrocardiogram
== END 2018-03-10 05:08 | disposition home or self-care (01) ==
LOC: ED 00:52
DX: G89.18 Other acute postprocedural pain (principal); E03.9 Hypothyroidism, unspecified
CPT/HCPCS: 74019; 80053; 81001; 82948; 83690; 84703; 85025; 85610; 85730; 87086; 93005; 96374; 99283; J2405; J7030

== ENCOUNTER 2018-06-14 05:30 | Emergency (ER) | payer BC ==
[2018-06-14 05:39] VITALS: BMI 52.7
[2018-06-14 05:44] VITALS: TEMP 98.5
[2018-06-14 05:54] VITALS: BP 138/74; PULSE 88; RESP 18; O2SAT 100
--- NOTE | 2018-06-14 05:54 | ED PDOC ---
Arrival/HPI - General Chief Complaint: Cough, Cold, Congestion Time Seen by Provider: 06/14/18 05:33 Historian: Patient - History of Present Illness Narrative History of Present Illness (Text): 06/14/18 05:51 47 year old female, whose past medical history include cholecystectomy, presents to the emergency department with dry cough, for 2 days. Patient informs of associated headache intermittently as well. Patient states she has had sick contact, with her who has cold/flu symptoms. Patient states she tried Robitussin at home. Patient denies any fever, chills, abdominal pain, nausea, vomiting, shortness of breath, chest pain, or any other complaints. Time/Duration: < week (2 days) Symptom Onset: Gradual Symptom Course: Unchanged Activities at Onset: Light Context: Home Past Medical History - Provider Review Nursing Documentation Reviewed: Yes - Infectious Disease Hx of Infectious Diseases: None - Tetanus Immunization Tetanus Immunization: Unknown - Past Medical History Past Medical History: No Previous - Cardiac Hx Cardiac Disorders: No - Pulmonary Hx Respiratory Disorders: No - Neurological Hx Neurological Disorder: No - HEENT Hx HEENT Disorder: Yes (sinusitis) - Renal Hx Renal Disorder: No - Endocrine/Metabolic Hx Endocrine Disorders: Yes Hx Hypothyroidism: Yes - Hematological/Oncological Hx Blood Disorders: Yes Hx Anemia: Yes (chronic anemia) - Integumentary Hx Dermatological Disorder: No - Musculoskeletal/Rheumatological Hx Musculoskeletal Disorders: No Hx Falls: No - Gastrointestinal Hx Gastrointestinal Disorders: Yes Hx Gall Bladder Disease: Yes Other/Comment: Gall stones - Genitourinary/Gynecological Hx Genitourinary Disorders: Yes Other/Comment: miscarriage and D&C in 05/04, also small fibroids - Psychiatric Hx Substance Use: No - Surgical History Hx Cholecystectomy: Yes Other/Comment: thyroidectomy. left fallopian tube removed in 1992. D&C in 05/04 - Anesthesia Hx Anesthesia: Yes Hx Anesthesia Reactions: No Hx Malignant Hyperthermia: No - Suicidal Assessment Feels Threatened In Home Enviroment: No Family/Social History - Physician Review Nursing Documentation Reviewed: Yes Family/Social History: No Known Family HX Smoking Status: Never Smoked Hx Alcohol Use: No Hx Substance Use: No Hx Substance Use Treatment: No Allergies/Home Meds Allergies/Adverse Reactions: Allergies No Known Allergies Allergy (Verified 03/04/18 23:21) Home Medications: Home Meds Medication Instructions Recorded Confirmed Levothyroxine Sodium [Unithroid] 200 mcg PO DAILY 08/10/16 06/14/18 Review of Systems - Physician Review All systems were reviewed & negative as marked: Yes - Review of Systems Constitutional: absent: Fevers, Night Sweats Respiratory: Cough. absent: SOB Cardiovascular: absent: Chest Pain Gastrointestinal: absent: Abdominal Pain, Nausea, Vomiting Physical Exam Vital Signs Reviewed: Yes Vital Signs Temp Pulse Resp BP Pulse Ox 06/14/18 05:43 98.5 F 91 H 20 144/96 H 98 Temperature: Afebrile Blood Pressure: Hypertensive Pulse: Regular Respiratory Rate: Normal Appearance: Positive for: Well-Appearing, Non-Toxic, Comfortable Pain Distress: None Mental Status: Positive for: Alert and Oriented X 3 - Systems Exam Head: Present: Atraumatic, Normocephalic Pupils: Present: PERRL Extroacular Muscles: Present: EOMI Conjunctiva: Present: Normal Mouth: Present: Moist Mucous Membranes Neck: Present: Normal Range of Motion Respiratory/Chest: Present: Clear to Auscultation, Good Air Exchange, Other (Intermittent dry cough). No: Respiratory Distress, Accessory Muscle Use Cardiovascular: Present: Regular Rate and Rhythm, Normal S1, S2. No: Murmurs Abdomen: No: Tenderness, Distention, Peritoneal Signs Back: Present: Normal Inspection Upper Extremity: Present: Normal Inspection. No: Cyanosis, Edema Lower Extremity: Present: Normal Inspection. No: Edema Neurological: Present: GCS=15, CN II-XII Intact, Speech Normal Skin: Present: Warm, Dry, Normal Color. No: Rashes Psychiatric: Present: Alert, Oriented x 3, Normal Insight, Normal Concentration Medical Decision Making ED Course and Treatment: Rx written for ganga garcia, as OTC cough medication has not helped. Likely viral infection, given less than a week of symptoms. Patient in no distress and is stable for discharge home. - Scribe Statement The provider has reviewed the documentation as recorded by the [facility] Provider Scribe Attestation: All medical record entries made by the Scribe were at my direction and personally dictated by me. I have reviewed the chart and agree that the record accurately reflects my personal performance of the history, physical exam, medical decision making, and the department course for this patient. I have also personally directed, reviewed, and agree with the discharge instructions and disposition. Disposition/Present on Arrival - Present on Arrival Any Indicators Present on Arrival: No History of DVT/PE: No History of Uncontrolled Diabetes: No Urinary Catheter: No History of Decub. Ulcer: No History Surgical Site Infection Following: None - Disposition Have Diagnosis and Disposition been Completed?: Yes Diagnosis: URI (upper respiratory infection) Disposition: HOME/ ROUTINE Disposition Time: 05:47 Condition: STABLE Discharge Instructions (ExitCare): Cough, Runny Nose, and the Common Cold (DC) Additional Instructions: MARY CARROLL, thank you for letting us take care of you today. Your provider was Alka Belcher MD and you were treated for coughing. The emergency medical care you received today was directed at your acute symptoms. If you were prescribed any medication, please fill it and take as directed. It may take several days for your symptoms to resolve. Return to the Emergency Department if your symptoms worsen, do not improve, or if you have any other problems. Please contact your doctor or call one of the physicians/clinics you have been referred to that are listed on the Patient Visit Information form that is included in your discharge packet. Bring any paperwork you were given at discharge with you along with any medications you are taking to your follow up visit. Our treatment cannot replace ongoing medical care by a primary care prov ider outside of the emergency department. Thank you for allowing the [facility] team to be part of your care today. If you had an X-Ray or CT scan: A Radiologist will review the ED reading if any change in treatment is needed we will contact you. If you had a blood, urine, or wound culture: It will take several days for the results, if any change in treatment is needed we will contact you. If you had an STI test: It will take 48 hours for the results. Please call after 1 week if you have not heard back. Prescriptions: Benzonatate [Tessalon Perles] 100 mg PO TID #14 sgl Referrals: Kay Sheridan MD [Primary Care Provider] - Follow up with primary Forms: [employer] (Turkmen)
== END 2018-06-14 05:53 | disposition home or self-care (01) ==
LOC: ED 05:30
DX: J06.9 Acute upper respiratory infection, unspecified (principal); E03.9 Hypothyroidism, unspecified

== ENCOUNTER 2018-08-14 19:33 | Observation (INO) | payer BC ==
[2018-08-14 20:05] VITALS: BMI 53.1
[2018-08-14] MEDS ORDERED: Sodium Chloride 0.9% 1,000 ML IV STA (20:54)
[2018-08-14 22:12] LABS: BASO # 0.04 K/mm3 (0.0-2.0); BASO % 0.5 % (0.0-3.0); EOS # 0.1 (0.0-0.7); EOS % 0.9 % (1.5-5.0); HEMOGLOBIN 9.9 g/dL (12.0-16.0); LYMPH # 2.9 (1.2-3.4); LYMPH % 33.4 % (22.0-35.0); MEAN CELL VOLUME 75.4 fl (80.0-105.0); MEAN CORPUSCULAR HEMOGLOBIN 23.2 pg (25.0-35.0); MEAN CORPUSCULAR HGB CONC 30.8 g/dl (31.0-37.0); MEAN PLATELET VOLUME 9.6 fl (7.0-11.0); MONO # 0.7 (0.1-0.6); MONO % 8.4 % (1.0-6.0); RBC 4.26 10^6/uL (3.5-6.1); RED CELL DISTRIBUTION WIDTH 17.4 % (11.5-14.5); WHITE BLOOD COUNT 8.7 10^3/uL (4.5-11.0)
[2018-08-14 22:15] LABS: ALB/GLOB RATIO 0.9 (1.1-1.8); ALBUMIN 3.9 g/dL (3.0-4.8); ALT/SGPT 9 U/L (7-56); AST/SGOT 34 U/L (14-36); BLOOD UREA NITROGEN 13 mg/dL (7-21); CALCIUM 9.6 mg/dL (8.4-10.5); GFR NON-AFRICAN AMERICAN > 60
[2018-08-14 22:26] LABS: TROPONIN I < 0.01 ng/mL
--- NOTE | 2018-08-15 00:23 | ED PDOC ---
Arrival/HPI - General Chief Complaint: Dizziness/Lightheaded Time Seen by Provider: 08/14/18 20:10 Historian: Patient - History of Present Illness Narrative History of Present Illness (Text): Marlene Chao is a 47 year old female who presents to the Emergency department complaining of dizziness and near-syncope. Patient states she was standing at work today when she suddenly felt dizzy, as if she was going to pass out, and developed nausea. Patient states she felt better after she sat down but shortly after, when she stood up symptoms returned. Patient denies any chest pain, shortness of breath, headache, generalized weakness, abdominal pain, back pain, dysuria, or urinary frequency. Patient does not she holds her urine for long periods of time and was concerned she may have a UTI. Symptom Onset: Gradual Symptom Course: Unchanged Activities at Onset: Light Context: Standing, Work Past Medical History - Provider Review Nursing Documentation Reviewed: Yes - Infectious Disease Hx of Infectious Diseases: None - Tetanus Immunization Tetanus Immunization: Unknown - Past Medical History Past Medical History: No Previous - Cardiac Hx Cardiac Disorders: No - Pulmonary Hx Respiratory Disorders: No - Neurological Hx Neurological Disorder: No - HEENT Hx HEENT Disorder: Yes (sinusitis) - Renal Hx Renal Disorder: No - Endocrine/Metabolic Hx Endocrine Disorders: Yes Hx Hypothyroidism: Yes - Hematological/Oncological Hx Blood Disorders: Yes Hx Anemia: Yes (chronic anemia) - Integumentary Hx Dermatological Disorder: No - Musculoskeletal/Rheumatological Hx Musculoskeletal Disorders: No Hx Falls: No - Gastrointestinal Hx Gastrointestinal Disorders: Yes Hx Gall Bladder Disease: Yes Other/Comment: Gall stones - Genitourinary/Gynecological Hx Genitourinary Disorders: Yes Other/Comment: miscarriage and D&C in 05/04, also small fibroids - Psychiatric Hx Psychophysiologic Disorder: No Hx Substance Use: No - Surgical History Hx Cholecystectomy: Yes Other/Comment: thyroidectomy. left fallopian tube removed in 1992. D&C in 05/04 - Anesthesia Hx Anesthesia: Yes Hx Anesthesia Reactions: No Hx Malignant Hyperthermia: No - Suicidal Assessment Feels Threatened In Home Enviroment: No Family/Social History - Physician Review Nursing Documentation Reviewed: Yes Family/Social History: Unknown Family HX Smoking Status: Never Smoked Hx Alcohol Use: No Hx Substance Use: No Hx Substance Use Treatment: No Allergies/Home Meds Allergies/Adverse Reactions: Allergies No Known Allergies Allergy (Verified 08/14/18 20:05) Home Medications: Home Meds Medication Instructions Recorded Confirmed Levothyroxine Sodium [Unithroid] 200 mcg PO DAILY 08/10/16 08/14/18 Vitamin D3/Folic Acid [Ortho Df 1 tab PO DAILY 08/14/18 08/14/18 3,775 Unit-1 mg Cap] Review of Systems - Physician Review All systems were reviewed & negative as marked: Yes - Review of Systems Constitutional: Normal. absent: Fevers Eyes: absent: Vision Changes, Photophobia ENT: absent: Sore Throat, Epistaxis Respiratory: Normal. absent: SOB, Cough Cardiovascular: Other (+near-syncopal). absent: Chest Pain, Palpitations, Syncope Gastrointestinal: Nausea. absent: Abdominal Pain, Constipation, Diarrhea, Vomiting Genitourinary Female: absent: Dysuria, Frequency Musculoskeletal: absent: Back Pain, Neck Pain Skin: absent: Rash, Pruritis Neurological: Dizziness. absent: Headache, Seizure Psychiatric: absent: Depression Physical Exam Vital Signs Reviewed: Yes Vital Signs Temp Pulse Resp BP Pulse Ox 08/15/18 00:09 64 17 141/61 98 08/14/18 22:30 97.7 F 73 18 135/93 H 98 08/14/18 20:06 97.6 F 69 18 166/96 H 100 Temperature: Afebrile Blood Pressure: Hypertensive Pulse: Regular Respiratory Rate: Normal Appearance: Positive for: Well-Appearing, Non-Toxic, Comfortable Pain Distress: None Mental Status: Positive for: Alert and Oriented X 3 - Systems Exam Head: Present: Atraumatic, Normocephalic Pupils: Present: PERRL Extroacular Muscles: Present: EOMI Conjunctiva: Present: Normal Mouth: Present: Moist Mucous Membranes Neck: Present: Normal Range of Motion, Trachea Midline Respiratory/Chest: Present: Clear to Auscultation, Good Air Exchange. No: Respiratory Distress, Accessory Muscle Use Cardiovascular: Present: Regular Rate and Rhythm, Normal S1, S2. No: Murmurs Abdomen: No: Tenderness, Distention, Peritoneal Signs Upper Extremity: Present: Normal Inspection. No: Cyanosis, Edema Lower Extremity: Present: Normal Inspection. No: Edema Neurological: Present: GCS=15, Speech Normal, Motor Func Grossly Intact (Moving all extremities), Normal Sensory Function, Gait Normal Skin: Present: Warm, Dry, Normal Color. No: Rashes Psychiatric: Present: Alert, Oriented x 3 Medical Decision Making ED Course and Treatment: Impression: 47 year old female presents for dizziness, near-syncope, and nausea today. Plan: -- CT Head w/o contrast -- EKG -- CBC, CMP -- Cardiac enzymes -- Urinalysis -- IV fluids -- Zofran -- Reassess and disposition Progress Notes: 08/15/18 00:51 ct wnl labs wnl trop; wnl ekg; NSR at [address] elevations QTC 453 UA; WNL pt given asa po. 47yr old female with obesity and HTN with near syncope; will admit observational status to near syncope. case discussed with dr. luna accepts obs admission impression; near syncope admit obs, remote tele Reassessment Condition: Re-examined, Improved - Lab Interpretations Lab Results: Troponin I < 0.01 ng/mL 08/14/18 21:59 Total Bilirubin 0.5 mg/dL (0.2-1.3) 08/14/18 21:59 AST 34 U/L (14-36) 08/14/18 21:59 ALT 9 U/L (7-56) 08/14/18 21:59 Alkaline Phosphatase 57 U/L (38-126) 08/14/18 21:59 Total Protein 8.1 g/dL (5.8-8.3) 08/14/18 21:59 Albumin 3.9 g/dL (3.0-4.8) 08/14/18 21:59 Globulin 4.2 gm/dL 08/14/18 21:59 Albumin/Globulin Ratio 0.9 (1.1-1.8) L 08/14/18 21:59 - RAD Interpretation Narrative RAD Interpretations (Text): CT Head: BRAIN No acute intraparenchymal hemorrhage. No mass lesion. No CT evidence for acute territorial infarct. No midline shift or extra-axial collections. VENTRICLES: No hydrocephalus. ORBITS: The orbits are unremarkable. SINUSES AND MASTOIDS: The paranasal sinuses and mastoid air cells are clear. Incidental note is made of christina bullosa within the left middle nasal turbinate; a normal variant finding. BONES: No fracture. SOFT TISSUES: Unremarkable. IMPRESSION: No acute intracranial abnormality. Electronically signed on Aug 14, 2018 11:29:55 PM EDT by: Rashaun Guerra M.D., MIC Certified By ABR & CBC[facility] Fellowship Trained MRI and CT Specialist Radiology Orders: 08/14/18 20:53 CHEST PORTABLE [RAD] Stat 08/14/18 22:28 HEAD W/O CONTRAST [CT] Stat Pitch Filler: Radiologist - Medication Orders Current Medication Orders: Discontinued Medications Sodium Chloride (Sodium Chloride 0.9%) 1,000 mls @ 999 mls/hr IV .Q1H1M STA Stop: 08/14/18 21:54 Last Admin: 08/14/18 21:34 Dose: 999 mls/hr eMAR Start Stop Document 08/14/18 21:34 IT (Rec: 08/14/18 21:34 IT [facility] [email or web address] Intravenous Solution Start Date 08/14/18 Start Time 21:34 Ondansetron HCl (Zofran Inj) 4 mg IVP STAT STA Stop: 08/14/18 22:30 Last Admin: 08/14/18 22:51 Dose: 4 mg IVP Administration Document 08/14/18 22:51 IT (Rec: 08/14/18 22:51 IT [facility] [email or web address] Charges for Administration # of IVP Administrations 1 - Scribe Statement The provider has reviewed the documentation as recorded by the [facility] Provider Scribe Attestation: All medical record entries made by the Scribe were at my direction and personally dictated by me. I have reviewed the chart and agree that the record accurately reflects my personal performance of the history, physical exam, medical decision making, and the department course for this patient. I have also personally directed, reviewed, and agree with the discharge instructions and disposition. Disposition/Present on Arrival - Present on Arrival Any Indicators Present on Arrival: No History of DVT/PE: No History of Uncontrolled Diabetes: No Urinary Catheter: No History of Decub. Ulcer: No History Surgical Site Infection Following: None - Disposition Have Diagnosis and Disposition been Completed?: Yes Diagnosis: Anemia, Near syncope Disposition: HOSPITALIZED Disposition Time: 00:54 Patient Plan: Observation, Telemetry (remote) Patient Problems: Current Active Problems Problem Status Onset Anemia Acute Near syncope Acute Condition: FAIR
[2018-08-15 00:48] LABS: URINE BILIRUBIN NEGATIVE (NEGATIVE); URINE BLOOD SMALL (NEGATIVE); URINE GLUCOSE (UA) NEGATIVE (NEGATIVE); URINE LEUKOCYTE ESTERASE NEGATIVE Leu/uL (NEGATIVE); URINE PROTEIN NEGATIVE mg/dL (<30 mg/dL); URINE UROBILINOGEN 0.2 E.U./dL (<1 E.U./dL)
[2018-08-15 00:50] LABS: URINE APPEARANCE CLEAR (CLEAR)
[2018-08-15 00:51] LABS: URINE COLOR YELLOW (YELLOW)
[2018-08-15 01:04] LABS: URINE EPITHELIAL CELLS 0 - 2 /hpf (0-5); URINE RBC 0 - 2 /hpf (0-2); URINE WBC 0 - 2 /hpf (0-6)
--- NOTE | 2018-08-15 01:07 | CP.PCM.HP ---
<ShanitagilbertPratik - Last Filed: 08/15/18 02:44> History of Present Illness - History of Present Illness History of Present Illness: PGY-1 History and Physical for Dr. Suresh Patient is a 47 year old female with PMHx cholelithiasis s/p cholecystectomy, hypothyroid (s/p goiter removal) who presents following near-syncopal episode in the afternoon. 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 She notifi ed her coworker who had patient sit down for a few minutes and symptoms began to improve. However patient states when she stood back up again she began to feel lightheaded and faint again. She denies ever passing out, falling, or losing consciousness. Patient denies palpitations, chest pain, headache. Following this episode at work, patient presented to ER and as been asymptomatic since that time. Denies any history of heart disease or stroke, or any family history of cardiovascular disease except mother with HTN. She does state she has been drinking water less frequently and avoiding urinating at work because she prefers not to use the bathroom at her place of work as it is dirty. PMH: cholelithiasis, hypothyroid PSH: L tubal ligation after exlap for ectopic , goiter removal, D&C 2013 ALL: nkda Medications: Reviewed as per MAR Social: denies alcohol, tobacco, or drug use. Works at [employer] in [place] service Family Hx: Mother - HTN PMD: Dr. Fontaine Extension Forester: Dr. Sheridan Present on Admission - Present on Admission Any Indicators Present on Admission: No Review of Systems - Constitutional Constitutional: absent: Chills, Fever, Headache - EENT Eyes: absent: Blurred Vision, Change in Vision, Diplopia, Photophobia Nose/Mouth/Throat: absent: Nasal Congestion, Nasal Discharge - Cardiovascular Cardiovascular: Lightheadedness (Resolved). absent: Chest Pain, Chest Pain at Rest, Dyspnea, Edema, Irregular Heart Rhythm, Palpitations, Pedal Edema, Rapid Heart Rate - Respiratory Respiratory: absent: Cough, Dyspnea, Wheezing - Gastrointestinal Gastrointestinal: absent: Abdominal Pain, Diarrhea, Nausea, Vomiting - Genitourinary Genitourinary: absent: Difficulty Urinating, Dysuria, Flank Pain, Urinary Hesitance (Admits to voluntarily holding urine while at work. No hesitancy.) - Musculoskeletal Musculoskeletal: absent: Back Pain, Numbness, Stiffness, Tingling - Neurological Neurological: Dizziness (Resolved), Syncope (near-syncope, resolved). absent: Confusion, Numbness, Focal Weakness, Paresthesias, Radicular Pain, Tingling, Weakness - Psychiatric Psychiatric: absent: Anxiety, Depression - Hematologic/Lymphatic Hematologic: absent: Easy Bleeding, Easy Bruising Past Patient History - Infectious Disease Hx of Infectious Diseases: None - Tetanus Immunizations Tetanus Immunization: Unknown - Past Medical History & Family History Past Medical History?: Yes - Past Social History Smoking Status: Never Smoked - CARDIAC Hx Cardiac Disorders: No - PULMONARY Hx Respiratory Disorders: No - NEUROLOGICAL Hx Neurological Disorder: No - HEENT Hx HEENT Problems: Yes (sinusitis) - RENAL Hx Chronic Kidney Disease: No - ENDOCRINE/METABOLIC Hx Endocrine Disorders: Yes Hx Hypothyroidism: Yes - HEMATOLOGICAL/ONCOLOGICAL Hx Blood Disorders: Yes Hx Anemia: Yes (chronic anemia) - INTEGUMENTARY Hx Dermatological Problems: No - MUSCULOSKELETAL/RHEUMATOLOGICAL Hx Musculoskeletal Disorders: No Hx Falls: No - GASTROINTESTINAL Hx Gastrointestinal Disorders: Yes Hx Gall Bladder Disease: Yes Other/Comment: Gall stones - GENITOURINARY/GYNECOLOGICAL Hx Genitourinary Disorders: Yes Other/Comment: miscarriage and D&C in 05/04, also small fibroids - PSYCHIATRIC Hx Psychophysiologic Disorder: No Hx Substance Use: No - SURGICAL HISTORY Hx Cholecystectomy: Yes Other/Comment: thyroidectomy. left fallopian tube removed in 1992. D&C in 05/04 - ANESTHESIA Hx Anesthesia: Yes Hx Anesthesia Reactions: No Hx Malignant Hyperthermia: No Meds Allergies/Adverse Reactions: Allergies Allergy/AdvReac Type Severity Reaction Status Date / Time No Known Allergies Allergy Verified 08/14/18 20:05 Physical Exam - Constitutional Appears: Non-toxic, No Acute Distress Additional comments: Obese - Head Exam Head Exam: ATRAUMATIC, NORMOCEPHALIC - Eye Exam Eye Exam: EOMI, Normal appearance - ENT Exam ENT Exam: Mucous Membranes Moist - Neck Exam Additional comments: Small surgical incision scar - Respiratory Exam Respiratory Exam: Clear to Auscultation Bilateral, NORMAL BREATHING PATTERN. absent: Rales, Rhonchi, Wheezes - Cardiovascular Exam Cardiovascular Exam: REGULAR RHYTHM, +S1, +S2 - GI/Abdominal Exam GI & Abdominal Exam: Normal Bowel Sounds, Soft. absent: Tenderness - Extremities Exam Extremities exam: Positive for: normal inspection. Negative for: pedal edema, tenderness - Neurological Exam Neurological exam: Alert, CN II-XII Intact, Normal Gait, Oriented x3 Additional comments: Motor and sensory function fully intact - Psychiatric Exam Psychiatric exam: Normal Affect, Normal Mood - Skin Skin Exam: Dry, Intact, Normal Color, Warm Results - Vital Signs Recent Vital Signs: Last Vital Signs Temp 97.7 F 08/14/18 22:30 Pulse 64 08/15/18 00:09 Resp 17 08/15/18 00:09 BP 141/61 08/15/18 00:09 Pulse Ox 98 08/15/18 00:09 - Labs Result Diagrams: 08/14/18 21:59 08/14/18 21:59 Labs: Laboratory Results - last 24 hr 08/14/18 08/14/18 08/15/18 21:59 21:59 00:20 WBC 8.7 RBC 4.26 Hgb 9.9 L Hct 32.1 L MCV 75.4 L D MCH 23.2 L MCHC 30.8 L RDW 17.4 H Plt Count 465 H MPV 9.6 Neut % (Auto) 56.8 Lymph % (Auto) 33.4 [place] % (Auto) 8.4 H Eos % (Auto) 0.9 L Baso % (Auto) 0.5 Lymph # (Auto) 2.9 [place] # (Auto) 0.7 H Eos # (Auto) 0.1 Baso # (Auto) 0.04 Absolute Neuts (auto) 4.92 Sodium 138 Potassium 3.5 L Chloride 102 Carbon Dioxide 30 Anion Gap 10 BUN 13 Creatinine 0.7 Est GFR ( Amer) > 60 Est GFR (Non-Af Amer) > 60 Random Glucose 93 Calcium 9.6 Total Bilirubin 0.5 AST 34 ALT 9 Alkaline Phosphatase 57 Lactate Dehydrogenase 444 Total Creatine Kinase 132 Troponin I < 0.01 Total Protein 8.1 Albumin 3.9 Globulin 4.2 Albumin/Globulin Ratio 0.9 L Urine Color Yellow Urine Appearance Clear Urine pH 6.0 Ur Specific [place] 1.010 Urine Protein Negative Urine Glucose (UA) Negative Urine Ketones Negative Urine Blood Small H Urine Nitrate Negative Urine Bilirubin Negative Urine Urobilinogen 0.2 Ur Leukocyte Esterase Negative Assessment & Plan - Assessment and Plan (Free Text) Assessment: Near-syncope -EKG NSR at [address] changes -CT head 08/14: No acute intracranial abnormality -CXR 08/14 - f/u read -Monitor on telemetry -Orthostatics Q8 -Neurochecks Q8 -Fall precautions -PT -Troponins WNL -TSH/Free T4 - f/u -2d Echo - f/u Hypothyroidism -Levothyroxine 200 mcg PO daily -TSH/free T4 - f/u PPx -DVT: Heparin 5000 U SC Q8 -Telemetry -Orthostatics Q8 -Neurochecks Q8 -Fall precautions -HHD -PT Assessment and plan discussed with Dr. Demetrice Mejia, PGY-1 <Sam Suresh - Last Filed: 08/15/18 06:34> Results - Vital Signs Recent Vital Signs: Last Vital Signs Temp 98.4 F 08/15/18 05:41 Pulse 66 08/15/18 05:41 Resp 18 08/15/18 05:41 BP 114/64 08/15/18 05:41 Pulse Ox 96 08/15/18 05:41 - Labs Result Diagrams: 08/14/18 21:59 08/14/18 21:59 Labs: Laboratory Results - last 24 hr 08/14/18 08/14/18 08/15/18 21:59 21:59 00:20 WBC 8.7 RBC 4.26 Hgb 9.9 L Hct 32.1 L MCV 75.4 L D MCH 23.2 L MCHC 30.8 L RDW 17.4 H Plt Count 465 H MPV 9.6 Neut % (Auto) 56.8 Lymph % (Auto) 33.4 [place] % (Auto) 8.4 H Eos % (Auto) 0.9 L Baso % (Auto) 0.5 Lymph # (Auto) 2.9 [place] # (Auto) 0.7 H Eos # (Auto) 0.1 Baso # (Auto) 0.04 Absolute Neuts (auto) 4.92 Sodium 138 Potassium 3.5 L Chloride 102 Carbon Dioxide 30 Anion Gap 10 BUN 13 Creatinine 0.7 Est GFR ( Amer) > 60 Est GFR (Non-Af Amer) > 60 Random Glucose 93 Calcium 9.6 Total Bilirubin 0.5 AST 34 ALT 9 Alkaline Phosphatase 57 Lactate Dehydrogenase 444 Total Creatine Kinase 132 Troponin I < 0.01 Total Protein 8.1 Albumin 3.9 Globulin 4.2 Albumin/Globulin Ratio 0.9 L Urine Color Yellow Urine Appearance Clear Urine pH 6.0 Ur Specific [place] 1.010 Urine Protein Negative Urine Glucose (UA) Negative Urine Ketones Negative Urine Blood Small H Urine Nitrate Negative Urine Bilirubin Negative Urine Urobilinogen 0.2 Ur Leukocyte Esterase Negative Urine RBC 0 - 2 Urine WBC 0 - 2 Ur Epithelial Cells 0 - 2 Urine Bacteria None Attending/Attestation - Attestation I have personally seen and examined this patient.: Yes I have fully participated in the care of the patient.: Yes I have reviewed all pertinent clinical information: Yes Notes (Text): Patient seen and examined, agree with the resident's note. 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 CTH negative for acute pathology. EKG with SR, no acute ischemic changes or blocks Orthostatics negative, although patient states she doesn't hydrate herself enough Non-focal neuro exam Noted to have anemia with microcytic type - f/u on iron panel/ferritin. Otherwise, hemodynamically stable. No other complains offered at the time of evaluation.
[2018-08-15] MEDS: Levothyroxine 100 MCG TAB PO SCH (05:49)
[2018-08-15] MEDS ORDERED: Potassium Chloride 20 mEq ER Tab PO ONE ×2 (06:16→10:14)
[2018-08-15 06:22] LABS: BASO # 0.02 K/mm3 (0.0-2.0); BASO % 0.3 % (0.0-3.0); EOS # 0.1 (0.0-0.7); EOS % 1.6 % (1.5-5.0); HEMOGLOBIN 9.5 g/dL (12.0-16.0); LYMPH # 2.8 (1.2-3.4); LYMPH % 43.1 % (22.0-35.0); MEAN CELL VOLUME 75.4 fl (80.0-105.0); MEAN CORPUSCULAR HEMOGLOBIN 22.9 pg (25.0-35.0); MEAN CORPUSCULAR HGB CONC 30.4 g/dl (31.0-37.0); MEAN PLATELET VOLUME 9.4 fl (7.0-11.0); MONO # 0.6 (0.1-0.6); MONO % 8.6 % (1.0-6.0); RBC 4.15 10^6/uL (3.5-6.1); RED CELL DISTRIBUTION WIDTH 17.1 % (11.5-14.5); WHITE BLOOD COUNT 6.4 10^3/uL (4.5-11.0)
[2018-08-15 07:06] LABS: ALB/GLOB RATIO 0.8 (1.1-1.8); ALBUMIN 3.3 g/dL (3.0-4.8); ALT/SGPT 9 U/L (7-56); AST/SGOT 25 U/L (14-36); BLOOD UREA NITROGEN 9 mg/dL (7-21); CALCIUM 8.9 mg/dL (8.4-10.5); GFR NON-AFRICAN AMERICAN > 60
[2018-08-15 08:39] LABS: IRON 55 ug/dL (45-180)
[2018-08-15 08:52] LABS: % IRON SATURATION 15 % (20-55); TOTAL IRON BINDING CAPACITY 372 ug/dL (265-497)
--- NOTE | 2018-08-15 09:10 | CT ---
Date of service: 08/14/2018 PROCEDURE: CT HEAD WITHOUT CONTRAST. HISTORY: dizziness, near syncope COMPARISON: None available. TECHNIQUE: Axial computed tomography images were obtained through the head/brain without intravenous contrast. Radiation dose: Total exam DLP = 937.91 mGy-cm. This CT exam was performed using one or more of the following dose reduction techniques: Automated exposure control, adjustment of the mA and/or kV according to patient size, and/or use of iterative reconstruction technique. FINDINGS: HEMORRHAGE: No intracranial hemorrhage. BRAIN: No mass effect or edema. No atrophy or chronic microvascular ischemic changes. VENTRICLES: Unremarkable. No hydrocephalus. CALVARIUM: Unremarkable. PARANASAL SINUSES: Unremarkable as visualized. No significant inflammatory changes. MASTOID AIR CELLS: Unremarkable as visualized. No inflammatory changes. OTHER FINDINGS: None. IMPRESSION: Normal CT of the Head.
--- NOTE | 2018-08-15 09:28 | RAD ---
Date of service: 08/14/2018 HISTORY: near syncope COMPARISON: 03/04/2018 TECHNIQUE: 1 view obtained. FINDINGS: LUNGS: No active pulmonary disease. PLEURA: No significant pleural effusion identified, no pneumothorax apparent. CARDIOVASCULAR: No aortic atherosclerotic calcification present. Normal cardiac size. No pulmonary vascular congestion. OSSEOUS STRUCTURES: No significant abnormalities. VISUALIZED UPPER ABDOMEN: Normal. OTHER FINDINGS: None. IMPRESSION: No active disease.
--- NOTE | 2018-08-15 10:07 | CARD ---
APPROVED REPORT Date of service: 08/14/2018 EKG Measurement Heart [id number] <Conclusion> Normal sinus rhythm Poor Quality EKG Somatic Tremors.
[2018-08-15] MEDS: FOLIC ACID PO SCH (10:16)
[2018-08-15] MEDS: VITAMIN D3 PO SCH (10:16)
--- NOTE | 2018-08-15 10:47 | CP.PCM.CON ---
<Juan Antonio Swann - Last Filed: 08/15/18 15:48> History of Present Illness - History of Present Illness History of Present Illness: Juan Antonio Swann PGY2 Neurology Consult Note for Dr. Reveles Consult Requested by Dr. Licona 47 year old female with PMHx cholelithiasis s/p cholecystectomy, hypothyroid (s/p goiter removal) who presents after feeling light headed at work yesterday morning. Patient was at work, felt weak and light headed and proceeded to sit down. She denied palpitations, fall, LOC, seizures, headaches, blurry vision or any other complaints. Currently she states her symptoms have resolved. PMH: cholelithiasis, hypothyroid PSH: L tubal ligation after exlap for ectopic , goiter removal, D&C 2013 ALL: nkda Medications: Reviewed as per MAR Social: denies alcohol, tobacco, or drug use. Works at [employer] in [place] service Family Hx: Mother - HTN PMD: Dr. Fontaine Starter Mechanic: Dr. Sheridan Review of Systems - Review of Systems Review of Systems: Negative except which was stated in HPI Past Patient History - Infectious Disease Hx of Infectious Diseases: None - Tetanus Immunizations Tetanus Immunization: Unknown - Past Medical History & Family History Past Medical History?: Yes - Past Social History Smoking Status: Never Smoked - CARDIAC Hx Cardiac Disorders: No - PULMONARY Hx Respiratory Disorders: No - NEUROLOGICAL Hx Neurological Disorder: No - HEENT Hx HEENT Problems: Yes (sinusitis) - RENAL Hx Chronic Kidney Disease: No - ENDOCRINE/METABOLIC Hx Endocrine Disorders: Yes Hx Hypothyroidism: Yes - HEMATOLOGICAL/ONCOLOGICAL Hx Blood Disorders: Yes Hx Anemia: Yes (chronic anemia) - INTEGUMENTARY Hx Dermatological Problems: No - MUSCULOSKELETAL/RHEUMATOLOGICAL Hx Musculoskeletal Disorders: No Hx Falls: No - GASTROINTESTINAL Hx Gastrointestinal Disorders: Yes Hx Gall Bladder Disease: Yes Other/Comment: Gall stones - GENITOURINARY/GYNECOLOGICAL Hx Genitourinary Disorders: Yes Other/Comment: miscarriage and D&C in 05/04, also small fibroids - PSYCHIATRIC Hx Psychophysiologic Disorder: No Hx Substance Use: No - SURGICAL HISTORY Hx Cholecystectomy: Yes Other/Comment: thyroidectomy. left fallopian tube removed in 1992. D&C in 05/04 - ANESTHESIA Hx Anesthesia: Yes Hx Anesthesia Reactions: No Hx Malignant Hyperthermia: No Meds Allergies/Adverse Reactions: Allergies Allergy/AdvReac Type Severity Reaction Status Date / Time No Known Allergies Allergy Verified 08/14/18 20:05 - Medications Medications: Current Medications Heparin Sodium (Porcine) (Heparin) 5,000 units SC Q8 [facility]; Protocol Last Admin: 08/15/18 05:49 Dose: 5,000 units Levothyroxine Sodium (Synthroid) 200 mcg PO 0600 [facility] Last Admin: 08/15/18 05:49 Dose: 200 mcg Vitamin D3/Folic Acid [Ortho Df 3,775 Unit-1 Mg Cap] ( Home Med) 1 tab PO DAILY [facility] Last Admin: 08/15/18 10:16 Dose: Not Given Ondansetron HCl (Zofran Inj) 4 mg IVP Q6 PRN PRN Reason: Nausea/Vomiting Physical Exam - Constitutional Appears: Non-toxic, No Acute Distress - Head Exam Head Exam: ATRAUMATIC, NORMAL INSPECTION, NORMOCEPHALIC - Eye Exam Eye Exam: EOMI, Normal appearance, PERRL - ENT Exam ENT Exam: Mucous Membranes Moist - Respiratory Exam Respiratory Exam: Clear to Auscultation Bilateral, NORMAL BREATHING PATTERN - Cardiovascular Exam Cardiovascular Exam: +S1, +S2 - GI/Abdominal Exam GI & Abdominal Exam: Soft - Neurological Exam Neurological exam: Alert, CN II-XII Intact, Oriented x3, Reflexes Normal Results - Vital Signs Recent Vital Signs: Last Vital Signs Temp 98.4 F 08/15/18 05:41 Pulse 62 08/15/18 10:00 Resp 18 08/15/18 05:41 BP 114/64 08/15/18 05:41 Pulse Ox 96 08/15/18 05:41 - Labs Result Diagrams: 08/15/18 05:30 08/15/18 05:30 Labs: Laboratory Results - last 24 hr 08/14/18 08/14/18 08/15/18 21:59 21:59 00:20 WBC 8.7 RBC 4.26 Hgb 9.9 L Hct 32.1 L MCV 75.4 L D MCH 23.2 L MCHC 30.8 L RDW 17.4 H Plt Count 465 H MPV 9.6 Neut % (Auto) 56.8 Lymph % (Auto) 33.4 [place] % (Auto) 8.4 H Eos % (Auto) 0.9 L Baso % (Auto) 0.5 Lymph # (Auto) 2.9 [place]da # (Auto) 0.7 H Eos # (Auto) 0.1 Baso # (Auto) 0.04 Absolute Neuts (auto) 4.92 Retic Count Sodium 138 Potassium 3.5 L Chloride 102 Carbon Dioxide 30 Anion Gap 10 BUN 13 Creatinine 0.7 Est GFR ( Amer) > 60 Est GFR (Non-Af Amer) > 60 Random Glucose 93 Calcium 9.6 Phosphorus Magnesium Iron TIBC % Saturation Total Bilirubin 0.5 AST 34 ALT 9 Alkaline Phosphatase 57 Lactate Dehydrogenase 444 Total Creatine Kinase 132 Troponin I < 0.01 Total Protein 8.1 Albumin 3.9 Globulin 4.2 Albumin/Globulin Ratio 0.9 L TSH 3rd Generation Urine Color Yellow Urine Appearance Clear Urine pH 6.0 Ur Specific [place] 1.010 Urine Protein Negative Urine Glucose (UA) Negative Urine Ketones Negative Urine Blood Small H Urine Nitrate Negative Urine Bilirubin Negative Urine Urobilinogen 0.2 Ur Leukocyte Esterase Negative Urine RBC 0 - 2 Urine WBC 0 - 2 Ur Epithelial Cells 0 - 2 Urine Bacteria None 08/15/18 08/15/18 08/15/18 05:30 05:30 05:30 WBC 6.4 D RBC 4.15 Hgb 9.5 L Hct 31.3 L MCV 75.4 L MCH 22.9 L MCHC 30.4 L RDW 17.1 H Plt Count 408 MPV 9.4 Neut % (Auto) 46.4 L Lymph % (Auto) 43.1 H Ida % (Auto) 8.6 H Eos % (Auto) 1.6 Baso % (Auto) 0.3 Lymph # (Auto) 2.8 Ida # (Auto) 0.6 Eos # (Auto) 0.1 Baso # (Auto) 0.02 Absolute Neuts (auto) 2.97 Retic Count Sodium 138 Potassium 3.4 L Chloride 106 Carbon Dioxide 27 Anion Gap 9 L BUN 9 Creatinine 0.6 L Est GFR ( Amer) > 60 Est GFR (Non-Af Amer) > 60 Random Glucose 88 Calcium 8.9 Phosphorus Magnesium Iron TIBC % Saturation Total Bilirubin 0.5 AST 25 ALT 9 Alkaline Phosphatase 46 Lactate Dehydrogenase Total Creatine Kinase Troponin I Total Protein 7.3 Albumin 3.3 Globulin 3.9 Albumin/Globulin Ratio 0.8 L TSH 3rd Generation 0.15 L Urine Color Urine Appearance Urine pH Ur Specific [place] Urine Protein Urine Glucose (UA) Urine Ketones Urine Blood Urine Nitrate Urine Bilirubin Urine Urobilinogen Ur Leukocyte Esterase Urine RBC Urine WBC Ur Epithelial Cells Urine Bacteria 08/15/18 08/15/18 08/15/18 05:30 05:30 08:37 WBC RBC Hgb Hct MCV MCH MCHC RDW Plt Count MPV Neut % (Auto) Lymph % (Auto) Ida % (Auto) Eos % (Auto) Baso % (Auto) Lymph # (Auto) Ida # (Auto) Eos # (Auto) Baso # (Auto) Absolute Neuts (auto) Retic Count 1.29 Sodium Potassium Chloride Carbon Dioxide Anion Gap BUN Creatinine Est GFR ( Amer) Est GFR (Non-Af Amer) Random Glucose Calcium Phosphorus 4.2 Magnesium 1.9 Iron 55 TIBC 372 % Saturation 15 L Total Bilirubin AST ALT Alkaline Phosphatase Lactate Dehydrogenase Total Creatine Kinase Troponin I Total Protein Albumin Globulin Albumin/Globulin Ratio TSH 3rd Generation Urine Color Urine Appearance Urine pH Ur Specific [place] Urine Protein Urine Glucose (UA) Urine Ketones Urine Blood Urine Nitrate Urine Bilirubin Urine Urobilinogen Ur Leukocyte Esterase Urine RBC Urine WBC Ur Epithelial Cells Urine Bacteria Assessment & Plan - Assessment and Plan (Free Text) Plan: Lightheadedness -likely secondary to dehydration -CT head negative -carotid dopplers negative -patients symptoms have resolved - encouraged to hydrate adequately <Luciano Reveles - Last Filed: 08/15/18 19:01> Meds - Medications Medications: Current Medications Heparin Sodium (Porcine) (Heparin) 5,000 units SC Q8 [facility]; Protocol Last Admin: 08/15/18 13:25 Dose: 5,000 units Levothyroxine Sodium (Synthroid) 200 mcg PO 0600 [facility] Last Admin: 08/15/18 05:49 Dose: 200 mcg Vitamin D3/Folic Acid [Ortho Df 3,775 Unit-1 Mg Cap] ( Home Med) 1 tab PO DAILY [facility] Last Admin: 08/15/18 10:16 Dose: Not Given Ondansetron HCl (Zofran Inj) 4 mg IVP Q6 PRN PRN Reason: Nausea/Vomiting Last Admin: 08/15/18 18:00 Dose: 4 mg Results - Vital Signs Recent Vital Signs: Last Vital Signs Temp 97.8 F 08/15/18 18:00 Pulse 77 08/15/18 18:00 Resp 18 08/15/18 18:00 BP 131/84 08/15/18 18:00 Pulse Ox 96 08/15/18 05:41 - Labs Result Diagrams: 08/15/18 05:30 08/15/18 05:30 Labs: Laboratory Results - last 24 hr 08/14/18 08/14/18 08/15/18 21:59 21:59 00:20 WBC 8.7 RBC 4.26 Hgb 9.9 L Hct 32.1 L MCV 75.4 L D MCH 23.2 L MCHC 30.8 L RDW 17.4 H Plt Count 465 H MPV 9.6 Neut % (Auto) 56.8 Lymph % (Auto) 33.4 [place]da % (Auto) 8.4 H Eos % (Auto) 0.9 L Baso % (Auto) 0.5 Lymph # (Auto) 2.9 [place]da # (Auto) 0.7 H Eos # (Auto) 0.1 Baso # (Auto) 0.04 Absolute Neuts (auto) 4.92 Retic Count Sodium 138 Potassium 3.5 L Chloride 102 Carbon Dioxide 30 Anion Gap 10 BUN 13 Creatinine 0.7 Est GFR ( Amer) > 60 Est GFR (Non-Af Amer) > 60 Random Glucose 93 Calcium 9.6 Phosphorus Magnesium Iron TIBC % Saturation Ferritin Total Bilirubin 0.5 AST 34 ALT 9 Alkaline Phosphatase 57 Lactate Dehydrogenase 444 Total Creatine Kinase 132 Troponin I < 0.01 Total Protein 8.1 Albumin 3.9 Globulin 4.2 Albumin/Globulin Ratio 0.9 L Free T4 Total T3 TSH 3rd Generation Urine Color Yellow Urine Appearance Clear Urine pH 6.0 Ur Specific [place] 1.010 Urine Protein Negative Urine Glucose (UA) Negative Urine Ketones Negative Urine Blood Small H Urine Nitrate Negative Urine Bilirubin Negative Urine Urobilinogen 0.2 Ur Leukocyte Esterase Negative Urine RBC 0 - 2 Urine WBC 0 - 2 Ur Epithelial Cells 0 - 2 Urine Bacteria None 08/15/18 08/15/18 08/15/18 05:30 05:30 05:30 WBC 6.4 D RBC 4.15 Hgb 9.5 L Hct 31.3 L MCV 75.4 L MCH 22.9 L MCHC 30.4 L RDW 17.1 H Plt Count 408 MPV 9.4 Neut % (Auto) 46.4 L Lymph % (Auto) 43.1 H Ida % (Auto) 8.6 H Eos % (Auto) 1.6 Baso % (Auto) 0.3 Lymph # (Auto) 2.8 Ida # (Auto) 0.6 Eos # (Auto) 0.1 Baso # (Auto) 0.02 Absolute Neuts (auto) 2.97 Retic Count Sodium 138 Potassium 3.4 L Chloride 106 Carbon Dioxide 27 Anion Gap 9 L BUN 9 Creatinine 0.6 L Est GFR ( Amer) > 60 Est GFR (Non-Af Amer) > 60 Random Glucose 88 Calcium 8.9 Phosphorus Magnesium Iron TIBC % Saturation Ferritin Total Bilirubin 0.5 AST 25 ALT 9 Alkaline Phosphatase 46 Lactate Dehydrogenase Total Creatine Kinase Troponin I Total Protein 7.3 Albumin 3.3 Globulin 3.9 Albumin/Globulin Ratio 0.8 L Free T4 Total T3 TSH 3rd Generation 0.15 L Urine Color Urine Appearance Urine pH Ur Specific [place] Urine Protein Urine Glucose (UA) Urine Ketones Urine Blood Urine Nitrate Urine Bilirubin Urine Urobilinogen Ur Leukocyte Esterase Urine RBC Urine WBC Ur Epithelial Cells Urine Bacteria 08/15/18 08/15/18 08/15/18 05:30 05:30 05:30 WBC RBC Hgb Hct MCV MCH MCHC RDW Plt Count MPV Neut % (Auto) Lymph % (Auto) [place]da % (Auto) Eos % (Auto) Baso % (Auto) Lymph # (Auto) [place]da # (Auto) Eos # (Auto) Baso # (Auto) Absolute Neuts (auto) Retic Count 1.29 Sodium Potassium Chloride Carbon Dioxide Anion Gap BUN Creatinine Est GFR ( Amer) Est GFR (Non-Af Amer) Random Glucose Calcium Phosphorus Magnesium Iron 55 TIBC 372 % Saturation 15 L Ferritin 9.7 Total Bilirubin AST ALT Alkaline Phosphatase Lactate Dehydrogenase Total Creatine Kinase Troponin I Total Protein Albumin Globulin Albumin/Globulin Ratio Free T4 Total T3 TSH 3rd Generation Urine Color Urine Appearance Urine pH Ur Specific [place] Urine Protein Urine Glucose (UA) Urine Ketones Urine Blood Urine Nitrate Urine Bilirubin Urine Urobilinogen Ur Leukocyte Esterase Urine RBC Urine WBC Ur Epithelial Cells Urine Bacteria 08/15/18 08/15/18 08:37 10:15 WBC RBC Hgb Hct MCV MCH MCHC RDW Plt Count MPV Neut % (Auto) Lymph % (Auto) Ida % (Auto) Eos % (Auto) Baso % (Auto) Lymph # (Auto) [place]da # (Auto) Eos # (Auto) Baso # (Auto) Absolute Neuts (auto) Retic Count Sodium Potassium Chloride Carbon Dioxide Anion Gap BUN Creatinine Est GFR ( Amer) Est GFR (Non-Af Amer) Random Glucose Calcium Phosphorus 4.2 Magnesium 1.9 Iron TIBC % Saturation Ferritin Total Bilirubin AST ALT Alkaline Phosphatase Lactate Dehydrogenase Total Creatine Kinase Troponin I Total Protein Albumin Globulin Albumin/Globulin Ratio Free T4 1.60 Total T3 1.20 TSH 3rd Generation Urine Color Urine Appearance Urine pH Ur Specific [place] Urine Protein Urine Glucose (UA) Urine Ketones Urine Blood Urine Nitrate Urine Bilirubin Urine Urobilinogen Ur Leukocyte Esterase Urine RBC Urine WBC Ur Epithelial Cells Urine Bacteria Attending/Attestation - Attestation I have personally seen and examined this patient.: Yes I have fully participated in the care of the patient.: Yes I have reviewed all pertinent clinical information: Yes Notes (Text): I agree with the assessment and plan. The patient was likely dehydrated. Continue medical management.
[2018-08-15 11:02] LABS: FREE T4 1.6 ng/dL (0.78-2.19)
[2018-08-15 11:16] LABS: T3 1.2 ng/mL (0.97-1.69)
--- NOTE | 2018-08-15 12:35 | US ---
PROCEDURE: Bilateral carotid artery duplex ultrasound HISTORY: Carotid stenosis syncope PHYSICIAN(S): Greyson Horowitz MD. TECHNIQUE: Duplex sonography and color-flow Doppler were used to evaluate the carotid bifurcations and limited segments of the vertebral arteries bilaterally. FINDINGS: There is mild intimal-medial thickening noted at the carotid bifurcations bilaterally. The peak systolic velocity in the proximal right internal carotid artery is 83 cm/sec. This corresponds to a 0-19 percent proximal right ICA stenosis. Normal systolic velocities are noted in the proximal right external carotid artery. There is antegrade flow in the right vertebral artery. The peak systolic velocity in the proximal left internal carotid artery is 58 cm/sec. This corresponds to a 0-19 percent proximal left ICA stenosis. Normal systolic velocities are noted in the proximal left external carotid artery. There is antegrade flow in the left vertebral artery. IMPRESSION: 1. Bilateral 0-19 percent proximal ICA stenoses. 2. Antegrade flow in both vertebral arteries.
[2018-08-16 00:13] VITALS: O2SAT 98
[2018-08-16] MEDS: Levothyroxine 100 MCG TAB PO SCH (05:28)
[2018-08-16 07:13] LABS: BASO # 0.03 K/mm3 (0.0-2.0); BASO % 0.5 % (0.0-3.0); EOS # 0.1 (0.0-0.7); EOS % 2.2 % (1.5-5.0); HEMOGLOBIN 10.1 g/dL (12.0-16.0); LYMPH # 2.5 (1.2-3.4); LYMPH % 41.8 % (22.0-35.0); MEAN CORPUSCULAR HEMOGLOBIN 23.3 pg (25.0-35.0); MEAN CORPUSCULAR HGB CONC 33.3 g/dl (31.0-37.0); MEAN PLATELET VOLUME 8.8 fl (7.0-11.0); MONO # 0.6 (0.1-0.6); MONO % 10.6 % (1.0-6.0); RBC 4.34 10^6/uL (3.5-6.1); RED CELL DISTRIBUTION WIDTH 17.3 % (11.5-14.5)
[2018-08-16 07:38] LABS: ALB/GLOB RATIO 0.9 (1.1-1.8); ALBUMIN 3.7 g/dL (3.0-4.8); ALT/SGPT 14 U/L (7-56); AST/SGOT 23 U/L (14-36); BLOOD UREA NITROGEN 10 mg/dL (7-21); CALCIUM 9.5 mg/dL (8.4-10.5); GFR NON-AFRICAN AMERICAN > 60
[2018-08-16 08:55] LABS: MEAN CELL VOLUME 75.6 fl (80.0-105.0)
[2018-08-16] MEDS: FOLIC ACID PO SCH (10:14)
[2018-08-16] MEDS: VITAMIN D3 PO SCH (10:14)
--- NOTE | 2018-08-16 11:24 | CP.PCM.DIS ---
Provider - Provider Date of Admission: 08/15/18 00:50 Attending physician: Brenda Licona DO Primary care physician: NO PRIMARY CARE PROVIDER Consults: 08/15/18 07:42 Neurology Consult Routine Comment: Consulting Provider: Luciano Reveles Consulting Physician: Luciano Reveles Reason for Consult: Presyncope Time Spent in preparation of Discharge (in minutes): 45 Diagnosis - Discharge Diagnosis (1) Orthostatic dizziness Status: Acute Priority: Medium (2) Near syncope Status: Acute Priority: Medium (3) Anemia Status: Chronic (4) Hypothyroid Status: Chronic Hospital Course - Lab Results Lab Results: Most Recent Lab Values WBC 6.0 10^3/uL (4.5-11.0) 08/16/18 06:30 RBC 4.34 10^6/uL (3.5-6.1) 08/16/18 06:30 Hgb 10.1 g/dL (12.0-16.0) L 08/16/18 06:30 Hct 30.3 % (36.0-48.0) L 08/16/18 06:30 MCV 75.6 fl (80.0-105.0) L 08/16/18 06:30 MCH 23.3 pg (25.0-35.0) L 08/16/18 06:30 MCHC 33.3 g/dl (31.0-37.0) 08/16/18 06:30 RDW 17.3 % (11.5-14.5) H 08/16/18 06:30 Plt Count 423 10^3/uL (120.0-450.0) 08/16/18 06:30 MPV 8.8 fl (7.0-11.0) 08/16/18 06:30 Neut % (Auto) 44.9 % (50.0-68.0) L 08/16/18 06:30 Lymph % (Auto) 41.8 % (22.0-35.0) H 08/16/18 06:30 [place] % (Auto) 10.6 % (1.0-6.0) H 08/16/18 06:30 Eos % (Auto) 2.2 % (1.5-5.0) 08/16/18 06:30 Baso % (Auto) 0.5 % (0.0-3.0) 08/16/18 06:30 Lymph # (Auto) 2.5 (1.2-3.4) 08/16/18 06:30 [place] # (Auto) 0.6 (0.1-0.6) 08/16/18 06:30 Eos # (Auto) 0.1 (0.0-0.7) 08/16/18 06:30 Baso # (Auto) 0.03 K/mm3 (0.0-2.0) 08/16/18 06:30 Absolute Neuts (auto) 2.70 (1.4-6.5) 08/16/18 06:30 Retic Count 1.29 % (0.5-1.5) 08/15/18 05:30 Sodium 139 mmol/L (132-148) 08/16/18 06:30 Potassium 4.0 mmol/L (3.6-5.0) 08/16/18 06:30 Chloride 105 mmol/L (98-107) 08/16/18 06:30 Carbon Dioxide 26 mmol/L (21-33) 08/16/18 06:30 Anion Gap 12 (10-20) 08/16/18 06:30 BUN 10 mg/dL (7-21) 08/16/18 06:30 Creatinine 0.7 mg/dl (0.7-1.2) 08/16/18 06:30 Est GFR ( Amer) > 60 08/16/18 06:30 Est GFR (Non-Af Amer) > 60 08/16/18 06:30 Random Glucose 99 mg/dL (70-110) 08/16/18 06:30 Calcium 9.5 mg/dL (8.4-10.5) 08/16/18 06:30 Phosphorus 4.2 mg/dL (2.5-4.5) 08/15/18 08:37 Magnesium 1.9 mg/dL (1.7-2.2) 08/15/18 08:37 Iron 55 ug/dL (45-180) 08/15/18 05:30 TIBC 372 ug/dL (265-497) 08/15/18 05:30 % Saturation 15 % (20-55) L 08/15/18 05:30 Ferritin 9.7 ng/mL 08/15/18 05:30 Total Bilirubin 0.4 mg/dL (0.2-1.3) 08/16/18 06:30 AST 23 U/L (14-36) 08/16/18 06:30 ALT 14 U/L (7-56) 08/16/18 06:30 Alkaline Phosphatase 50 U/L (38-126) 08/16/18 06:30 Lactate Dehydrogenase 444 U/L (333-699) 08/14/18 21:59 Total Creatine Kinase 132 U/L (35-230) 08/14/18 21:59 Troponin I < 0.01 ng/mL 08/14/18 21:59 Total Protein 7.9 g/dL (5.8-8.3) 08/16/18 06:30 Albumin 3.7 g/dL (3.0-4.8) 08/16/18 06:30 Globulin 4.1 gm/dL 08/16/18 06:30 Albumin/Globulin Ratio 0.9 (1.1-1.8) L 08/16/18 06:30 Free T4 1.60 ng/dL (0.78-2.19) 08/15/18 10:15 Total T3 1.20 ng/mL (0.97-1.69) 08/15/18 10:15 TSH 3rd Generation 0.15 mIU/mL (0.46-4.68) L 08/15/18 05:30 Urine Color Yellow (YELLOW) 08/15/18 00:20 Urine Appearance Clear (CLEAR) 08/15/18 00:20 Urine pH 6.0 (4.7-8.0) 08/15/18 00:20 Ur Specific [place] 1.010 (1.005-1.035) 08/15/18 00:20 Urine Protein Negative mg/dL (<30 mg/dL) 08/15/18 00:20 Urine Glucose (UA) Negative mg/dL (NEGATIVE) 08/15/18 00:20 Urine Ketones Negative mg/dL (NEGATIVE) 08/15/18 00:20 Urine Blood Small (NEGATIVE) H 08/15/18 00:20 Urine Nitrate Negative (NEGATIVE) 08/15/18 00:20 Urine Bilirubin Negative (NEGATIVE) 08/15/18 00:20 Urine Urobilinogen 0.2 E.U./dL (<1 E.U./dL) 08/15/18 00:20 Ur Leukocyte Esterase Negative [place]/uL (NEGATIVE) 08/15/18 00:20 Urine RBC 0 - 2 /hpf (0-2) 08/15/18 00:20 Urine WBC 0 - 2 /hpf (0-6) 08/15/18 00:20 Ur Epithelial Cells 0 - 2 /hpf (0-5) 08/15/18 00:20 Urine Bacteria None /hpf (NONE) 08/15/18 00:20 - Hospital Course Hospital Course: Dawson Licona DO PGY1 - Internal Medicine Chair Mechanic - Hospitalist Discharge Summary 48F PMH cholelithiasis s/p cholecystectomy, hypothyroid (s/p goiter removal) presented 08/15 w/ c/o near syncopal episode prior to presentation. Patient reported Lightheaded episode lasting minutes improved w/ sitting; w/o loss of consciousness prior to arrival. Patient subsequently admitted for presyncope workup. CT Head performed in ED showed no acute intracranial abnormality; initial orthostatics showed no drop in blood pressure w/ associated change in position however orthostatics later during admission did show a mild drop. EKG upon presentation was NSR 72, No telemetry events reported, Carotid Duplex 0-19% stenosis. Neuro consulted who determined symptoms likely 2/2 dehydration. Patient was given IVF throughout admission. Prior ECHO from February 2018 reviewed; Showed EF 73.6%, Normal LV Wall motion, Normal diastolic function. During hospitalization, patient was noted to have anemia; review of records showed anemia is chronic. Patient denied seeing any heme/onc in the past. Patient was recommended to see a heme/onc doctor outpt for her anemia, she verbalized understanding. Patient denied any chest pain, sob, abd pain, lightheadedness, visual changes, dizziness. Prior to Discharge, Patient was seen, examined, and discussed w/ attending physician Dr. Brenda Licona Patient was given the discharge instructions below and verbalized understanding: Patient is medically optimized for discharge at this time. - Date & Time of H&P Date of H&P: 08/16/18 Time of H&P: 09:00 Discharge Exam - Head Exam Head Exam: ATRAUMATIC, NORMAL INSPECTION, NORMOCEPHALIC - Eye Exam Eye Exam: EOMI, PERRL - Respiratory Exam Respiratory Exam: Clear to PA & Lateral, NORMAL BREATHING PATTERN - Cardiovascular Exam Cardiovascular Exam: REGULAR RHYTHM, RRR - GI/Abdominal Exam GI & Abdominal Exam: Normal Bowel Sounds. absent: Tenderness - Extremities Exam Extremities exam: normal capillary refill, pedal pulses present - Back Exam Back exam: absent: CVA tenderness (L), CVA tenderness (R) - Neurological Exam Neurological exam: Alert, CN II-XII Intact, Oriented x3 - Psychiatric Exam Psychiatric exam: Normal Affect, Normal Mood - Skin Skin Exam: Dry, Normal Color, Warm Discharge Plan - Follow Up Plan Condition: GOOD Disposition: HOME/ ROUTINE Patient education suggested?: Yes Instructions: Syncope (Fainting) (DC) Additional Instructions: You were admitted for dizziness (Pre-Syncope); Your dizziness was found to be due to orthostasis which can be caused by dehydration Please adequately hydrate yourself When going from a lying/sitting to a standing position, please get up slowly to avoid dizzy spells Please continue taking your home medications as previously prescribed Please follow up with your primary care doctor within 3-5 days of discharge. Please make sure to follow up with your primary care doctor for your chronic anemia. If your symptoms return, or new concerning symptoms arise, please go to the nearest emergency department immediately Referrals: Kay Sheridan MD [Medical Doctor] - Antione Fontaine MD [Medical Doctor] - PCP,NO [Primary Care Provider] -
[2018-08-16 12:07] VITALS: BP 131/84; PULSE 70; RESP 20; TEMP 97.9
== END 2018-08-16 15:45 | disposition home or self-care (01) ==
LOC: ED 19:33 → ERH 08-15 00:50 → 2RNO 08-15 01:40
PROVIDERS: ADMIT Hospitalist; ATTEND Hospitalist
DX: E86.0 Dehydration (principal); R55 Syncope and collapse; D64.9 Anemia, unspecified; E89.0 Postprocedural hypothyroidism; Z82.49 Family history of ischemic heart disease and other diseases of the circulatory system
CPT/HCPCS: 36415; 70450; 71045; 80053; 81001; 81025; 82550; 82728; 83540; 83550; 83615; 83735; 84100; 84439; 84443; 84480; 84484; 85025; 85044; 93005; 93880; 96374; 97116; 97161; 99285; G0378; G8978; G8979; G8980; J1644; J2405; J7030